=== PATIENT | male | born 1975 | race Caucasian/White ===

== ENCOUNTER 2017-08-14 09:00 | Outpatient (CLI) | payer BC | END 2017-08-14 09:24 | disposition home or self-care (01) | LOC: PTMAIN 09:00 | PROVIDERS: ATTEND Otolaryngology | DX: K21.9 Gastro-esophageal reflux disease without esophagitis (principal); J37.0 Chronic laryngitis | CPT/HCPCS: 31579 ==

== ENCOUNTER → 2017-08-14 | Outpatient (CLI) | payer BC ==
--- NOTE | 2017-08-14 09:15 | CT ---
EXAMINATION TYPE: CT sinus wo con DATE OF EXAM: 08/14/2017 COMPARISON: NONE HISTORY: Sinusitis, throat pain CT DLP: [address] of the paranasal sinuses was performed in the axial and coronal planes. Bone and soft tissue settings are submitted. The paranasal sinuses demonstrate normal aeration and development. The paranasal sinuses are free of mucosal thickening or air fluid level. The osteal meatal units are patent bilaterally. Mild nasal septal deviation from right to left. No bony destructive changes are seen within the field of view. IMPRESSION: Mild nasal septal deviation from right to left.
== END | disposition home or self-care (01) ==
LOC: RADCTMAIN 08:47
PROVIDERS: ATTEND Otolaryngology
DX: J34.2 Deviated nasal septum (principal); J32.9 Chronic sinusitis, unspecified
CPT/HCPCS: 70486

== ENCOUNTER 2022-08-01 13:45 | Inpatient (IN) | payer BC ==
--- NOTE | 2022-08-01 14:48 | ED ---
General Adult HPI - General Source: patient, RN notes reviewed Mode of arrival: ambulatory <Augusta Lopez - Last Filed: 08/01/22 14:46> - General Source: RN notes reviewed, old records reviewed - History of Present Illness -: week(s) (3) Location: abdomen Radiation: non-radiation Severity scale (1-10): 4 Quality: stabbing Consistency: constant Improves with: none Worsens with: none Associated Symptoms: loss of appetite, nausea/vomiting, weakness Treatments Prior to Arrival: none <Shabbir Rodriguez - Last Filed: 08/01/22 17:09> - General Chief complaint: Abdominal Pain Stated complaint: appendix Time Seen by Provider: 08/01/22 14:46 - History of Present Illness Initial comments: 47-year-old male presents to the emergency department with a chief complaint of abnormal CT results. Patient reports that he had an outpatient CT performed at [address] [place] [address] which revealed appendicitis. (Augusta Lopez) This is a 47-year-old male to the emergency department for evaluation presents today with outpatient computed tomography scan results. Patient has had abd ominal pain for 3 weeks episodic one episode of severe abdominal pain which brought him to his knees up over his car significantly nauseous sweating and screaming in pain. That episode did ok but he still had persistent pain since it's all right lower quadrant with decreased appetite Patient was told by his primary care to come the emergency room for evaluation regarding appendicitis (Shabbir Rodriguez) - Related Data Allergies Allergy/AdvReac Type Severity Reaction Status Date / Time No Known Allergies Allergy Verified 08/01/22 13:57 Review of Systems ROS Other: All systems not noted in ROS Statement are negative. <Augusta Lopez - Last Filed: 08/01/22 14:46> ROS Other: All systems not noted in ROS Statement are negative. <Shabbir Rodriguez - Last Filed: 08/01/22 17:09> ROS Statement: Those systems with pertinent positive or pertinent negative responses have been documented in the HPI. Past Medical History Past Medical History: No Reported History History of Any Multi-Drug Resistant Organisms: None Reported Past Surgical History: Cholecystectomy Past Psychological History: No Psychological Hx Reported Smoking Status: Never smoker Past Alcohol Use History: Rare Past Drug Use History: None Reported <Augusta Lopez - Last Filed: 08/01/22 14:46> General Exam <KristinacoleAugusta - Last Filed: 08/01/22 14:46> General appearance: alert, in no apparent distress Head exam: Present: atraumatic, normocephalic, normal inspection Eye exam: Present: normal appearance, PERRL, EOMI. Absent: scleral icterus, conjunctival injection, periorbital swelling ENT exam: Present: normal exam, mucous membranes moist Neck exam: Present: normal inspection. Absent: tenderness, meningismus, lymphadenopathy Respiratory exam: Present: normal lung sounds bilaterally. Absent: respiratory distress, wheezes, rales, rhonchi, stridor Cardiovascular Exam: Present: regular rate, normal rhythm, normal heart sounds. Absent: systolic murmur, diastolic murmur, rubs, gallop, clicks GI/Abdominal exam: Present: soft, tenderness, guarding (Right lower quadrant), normal bowel sounds. Absent: distended, rebound, rigid Extremities exam: Present: normal inspection, full ROM, normal capillary refill. Absent: tenderness, pedal edema, joint swelling, calf tenderness Back exam: Present: normal inspection Neurological exam: Present: alert, oriented X3, CN II-XII intact Psychiatric exam: Present: normal affect, normal mood Skin exam: Present: warm, dry, intact, normal color. Absent: rash <Shabbir Rodriguez - Last Filed: 08/01/22 17:09> - General Exam Comments Initial Comments: Visual Physical Exam Vital signs reviewed General: Well-appearing, nontoxic, no acute distress. Head: Normocephalic, atraumatic Eyes: PERRLA, EOMI ENT: Airway patent Chest: Nonlabored breathing Skin: No visual rash, normal skin tone Neuro: Alert and oriented 3 Musculoskeletal: No gross abnormalities (Augusta Lopez) Course <Shabbir Rodriguez - Last Filed: 08/01/22 17:09> Vital Signs 08/01/22 13:52 Temperature 97.8 F Pulse Rate 84 Respiratory 18 Rate Blood Pressure 115/77 O2 Sat by Pulse 97 Oximetry - Reevaluation(s) Reevaluation #1: 08/01/22 17:06 Medical records reviewed (Shabbir Rodriguez) Reevaluation #2: 08/01/22 17:07 Patient has adequate pain control (Shabbir Rodriguez) Reevaluation #3: 08/01/22 17:07 Patient informed of results and questions answered (Shabbir Rodriguez) Reevaluation #4: 08/01/22 17:07 Was pt. sent in by a medical professional or institution? @ -yes patients PCP re appendiciitis Did you speak to anyone other than the patient for history? @ -no Did you review nursing and triage notes? @ -agree Were old charts reviewed? @ -yes attempted to get CT results and report only was able to reeceive verbal read of appendicitis Differential Diagnosis? @ -prior,abdominal pain EKG interpreted by me (3pts min.)? @ -yes X-rays interpreted by me (1pt min.)? @ -no CT interpreted by me (1pt min.)? @ -no U/S interpreted by me (1pt. min.)? @ -no What testing was considered but not performed? (CT, X-rays, U/S, labs)? Why? @ -no What meds were considered but not given? Why? @ -no Did you discuss the management of the patient with other professionals? @ -no Did you reconcile home meds? @ -yes Was smoking cessation discussed for >3mins.? @ -no Was critical care preformed (if so, how long)? @ -no Were there social determinants of health that impacted care today? How? (Homelessness, low income, unemployed, alcoholism, drug addiction, transportation, low edu. Level, literacy, decrease access to med. care, long term, re hab)? @ -no Was there de-escalation of care discussed even if they declined? (Discuss DNR or withdrawal of care, Hospice)? @ -no What co-morbidities impacted this encounter? (DM, HTN, Smoking, COPD, CAD, Cancer, CVA, Hep., AIDS, mental health diagnosis, sleep apnea, morbid obesity)? @ -none Was patient admitted / discharged? @ -admit Undiagnosed new problem with uncertain prognosis? @ -no Drug Therapy requiring intensive monitoring for toxicity (Heparin, Nitro, Insulin, Cardizem)? @ -no Were any procedures done? @ -no Diagnosis/symptom? @ -acute appendicitis Acute, or Chronic, or Acute on Chronic? @ -acute Uncomplicated (without systemic symptoms) or Complicated (systemic symptoms)? @ -uncomplicated Side effects of treatment? @ -no Exacerbation, Progression, or Severe Exacerbation] @ - Poses a threat to life or bodily function? @ -yes 08/01/22 17:07 (Shabbir Rodriguez) Reevaluation #5: 08/01/22 17:07 Differential Abdominal Pain Women: Appendicitis, Cholecystitis, diverticulosis, ischemic bowel, pancreatitis, h epatitis, UTI, gastroenteritis, AAA, incarcerated hernia, bowel obstruction, constipation, inflammatory bowel, hepatitis, peptic ulcer disease, splenic infarction, perforated viscus, vulvitis, ovarian torsion, PID, kidney stone, placenta abruption, this is not meant to be an all-inclusive list (Shabbir Rodriguez) - Consultations Consultation #1: Spoke with Dr. Jackson will admit this patient for surgical evaluation and consult (Shabbir Rodriguez) Medical Decision Making - Lab Data Result diagrams: 08/01/22 15:53 08/01/22 15:53 <Shabbir Rodriguez - Last Filed: 08/01/22 17:09> - Medical Decision Making 47 male to the emergency department for evaluation acute appendicitis patient will be admitted on IV antibiotics and pain management for surgical consult evaluation (Shabbir Rodriguez) - Lab Data Lab Results 08/01/22 08/01/22 08/01/22 Range/Units 15:53 15:53 15:53 WBC 7.3 (3.8-10.6) k/uL RBC 4.52 (4.30-5.90) m/uL Hgb 13.6 (13.0-17.5) gm/dL Hct 40.0 (39.0-53.0) % MCV 88.4 (80.0-100.0) fL MCH 30.0 (25.0-35.0) pg MCHC 34.0 (31.0-37.0) g/dL RDW 12.9 (11.5-15.5) % Plt Count 340 (150-450) k/uL MPV 7.8 Neutrophils % 72 % Lymphocytes % 19 % Monocytes % 4 % Eosinophils % 2 % Basophils % 0 % Neutrophils # 5.3 (1.3-7.7) k/uL Lymphocytes # 1.4 (1.0-4.8) k/uL Monocytes # 0.3 (0-1.0) k/uL Eosinophils # 0.1 (0-0.7) k/uL Basophils # 0.0 (0-0.2) k/uL PT 10.3 (9.0-12.0) sec INR 1.0 (<1.2) APTT 24.7 (22.0-30.0) sec Sodium 139 (137-145) mmol/L Potassium 4.2 (3.5-5.1) mmol/L Chloride 103 (98-107) mmol/L Carbon Dioxide 26 (22-30) mmol/L Anion Gap 10 mmol/L BUN 14 (9-20) mg/dL Creatinine 0.65 L (0.66-1.25) mg/dL Est GFR (CKD-EPI)AfAm >90 (>60 ml/min/1.73 sqM) Est GFR (CKD-EPI)NonAf >90 (>60 ml/min/1.73 sqM) Glucose 101 H (74-99) mg/dL Calcium 9.1 (8.4-10.2) mg/dL Phosphorus (2.5-4.5) mg/dL Magnesium (1.6-2.3) mg/dL Total Bilirubin 0.5 (0.2-1.3) mg/dL AST 17 (17-59) U/L ALT 15 (4-49) U/L Alkaline Phosphatase 57 (38-126) U/L Total Protein 6.4 (6.3-8.2) g/dL Albumin 3.9 (3.5-5.0) g/dL Lipase (23-300) U/L 08/01/22 Range/Units 15:53 WBC (3.8-10.6) k/uL RBC (4.30-5.90) m/uL Hgb (13.0-17.5) gm/dL Hct (39.0-53.0) % MCV (80.0-100.0) fL MCH (25.0-35.0) pg MCHC (31.0-37.0) g/dL RDW (11.5-15.5) % Plt Count (150-450) k/uL MPV Neutrophils % % Lymphocytes % % Monocytes % % Eosinophils % % Basophils % % Neutrophils # (1.3-7.7) k/uL Lymphocytes # (1.0-4.8) k/uL Monocytes # (0-1.0) k/uL Eosinophils # (0-0.7) k/uL Basophils # (0-0.2) k/uL PT (9.0-12.0) sec INR (<1.2) APTT (22.0-30.0) sec Sodium (137-145) mmol/L Potassium (3.5-5.1) mmol/L Chloride (98-107) mmol/L Carbon Dioxide (22-30) mmol/L Anion Gap mmol/L BUN (9-20) mg/dL Creatinine (0.66-1.25) mg/dL Est GFR (CKD-EPI)AfAm (>60 ml/min/1.73 sqM) Est GFR (CKD-EPI)NonAf (>60 ml/min/1.73 sqM) Glucose (74-99) mg/dL Calcium (8.4-10.2) mg/dL Phosphorus 3.6 (2.5-4.5) mg/dL Magnesium 2.1 (1.6-2.3) mg/dL Total Bilirubin (0.2-1.3) mg/dL AST (17-59) U/L ALT (4-49) U/L Alkaline Phosphatase (38-126) U/L Total Protein (6.3-8.2) g/dL Albumin (3.5-5.0) g/dL Lipase 256 (23-300) U/L Disposition <Augusta Lopez - Last Filed: 08/01/22 14:46> Is patient prescribed a controlled substance at d/c from ED?: No Time of Disposition: 17:10 <Shabbir Rodriguez - Last Filed: 08/01/22 17:09> Clinical Impression: Abdominal pain, Acute appendicitis Disposition: ADMITTED IP TO THIS HOSP Condition: Serious Referrals: Carlton Rodrigues MD [Primary Care Provider] - 1-2 days
[2022-08-01] MEDS ORDERED: SODIUM CHLORIDE 0.9% 1,000 ML IV STA (15:57)
[2022-08-01 16:10] LABS: ALT 15 U/L (4-49); AST 17 U/L (17-59); African American GFR (CKD) >90 (>60 ml/min/1.73 sqM); Albumin 3.9 g/dL (3.5-5.0); Alkaline Phosphatase 57 U/L (38-126); Anion Gap 10 mmol/L; Blood Urea Nitrogen 14 mg/dL (9-20); Calcium 9.1 mg/dL (8.4-10.2); Carbon Dioxide 26 mmol/L (22-30); Chloride 103 mmol/L (98-107); Glucose 101 mg/dL (74-99); Non-African American GFR(CKD) >90 (>60 ml/min/1.73 sqM); Potassium 4.2 mmol/L (3.5-5.1); Sodium 139 mmol/L (137-145); Total Bilirubin 0.5 mg/dL (0.2-1.3); Total Protein 6.4 g/dL (6.3-8.2)
[2022-08-01 16:12] LABS: Partial Thromboplastin Time 24.7 sec (22.0-30.0); Prothrombin Time 10.3 sec (9.0-12.0)
[2022-08-01 16:13] LABS: Basophils % (A) 0 %; Eosinophils # (A) 0.1 k/uL (0-0.7); Eosinophils % (A) 2 %; HGB 13.6 gm/dL (13.0-17.5); Lymphocytes # (A) 1.4 k/uL (1.0-4.8); Lymphocytes % (A) 19 %; MCV 88.4 fL (80.0-100.0); Mean Platelet Volume 7.8; Monocytes # (A) 0.3 k/uL (0-1.0); Monocytes % (A) 4 %; Neutrophils # (A) 5.3 k/uL (1.3-7.7); Neutrophils % (A) 72 %; Platelet Count 340 k/uL (150-450); RBC 4.52 m/uL (4.30-5.90); RDW 12.9 % (11.5-15.5); WBC 7.3 k/uL (3.8-10.6)
[2022-08-01] MEDS ORDERED: NALOXONE 0.4 MG/ML 1 ML VIAL IV PRN (16:48)
[2022-08-01] MEDS ORDERED: AMPICILLIN-SULBACTAM 3 GM in SODIUM CHLORIDE 0.9% 100 ML IVPB STA (16:48)
[2022-08-01 16:57] LABS: Magnesium 2.1 mg/dL (1.6-2.3); Phosphorus 3.6 mg/dL (2.5-4.5)
[2022-08-01] MEDS ORDERED: KETOROLAC 15 MG/ML 1 ML VIAL IVP STA (17:05)
[2022-08-01] MEDS: PANTOPRAZOLE 40 MG/10 ML VIAL IV SCH (17:13)
[2022-08-01] MEDS: MORPHINE SULFATE 4 MG/ML SYRINGE IV PRN ×2 (17:13→22:24)
[2022-08-01] MEDS: SODIUM CHLORIDE 0.9% 1,000 ML IV SCH ×2 (18:20→22:01)
[2022-08-02] MEDS: AMPICILLIN-SULBACTAM 3 GM in SODIUM CHLORIDE 0.9% 100 ML IVPB SCH ×4 (00:03→22:48)
[2022-08-02] MEDS: MORPHINE SULFATE 4 MG/ML SYRINGE IV PRN ×2 (04:03→09:01)
[2022-08-02] MEDS: PANTOPRAZOLE 40 MG/10 ML VIAL IV SCH (08:56)
--- NOTE | 2022-08-02 10:05 | P.GSHP ---
History of Present Illness H&P Date: 08/02/22 Chief Complaint: Acute appendicitis 47-year-old male has had intermittent episodes of right lower quadrant pain which radiates to the back and the lower pelvic region for the last month or so. He went for outpatient CAT scan at his doctor's office yesterday. A 1.5 cm dilated retrocecal appendix with significant inflammatory changes was noted. There was no abscess or free air seen. The patient is afebrile. Normal white blood cell count at this time. Says his pain is mild to moderate today but can be quite severe some days. Denies rectal bleeding or melena. - Review of Systems Comment: The patient denies any acute changes in vision or hearing, no dysphagia or odynophagia, no chest pain or shortness of breath, no dysuria or hematuria, no headache, no runny nose, no rectal bleeding or melena, no unexplained weight loss Past Medical History Past Medical History: GERD/Reflux, Hyperlipidemia History of Any Multi-Drug Resistant Organisms: None Reported Past Surgical History: Adenoidectomy, Cholecystectomy, Tonsillectomy Past Anesthesia/Blood Transfusion Reactions: No Reported Reaction Past Psychological History: Depression Smoking Status: Never smoker Past Alcohol Use History: Rare Past Drug Use History: None Reported - Past Family History Mother Additional Family Medical History / Comment(s): kidney stones Father Family Medical History: Cancer, Diabetes Mellitus, Hypertension, Thyroid Disorder Additional Family Medical History / Comment(s): leukemia, kidney stones Medications and Allergies Home Medications Medication Instructions Recorded Confirmed Type Cyanocobalamin (Vitamin B-12) 1,000 mcg PO DAILY 08/01/22 08/01/22 History [Vitamin B-12] Eszopiclone [Lunesta] 3 mg PO HS 08/01/22 08/01/22 History Pantoprazole Sodium [Protonix] 40 mg PO DAILY 08/01/22 08/01/22 History buPROPion XL [Wellbutrin XL] 150 mg PO DAILY 08/01/22 08/01/22 History Allergies Allergy/AdvReac Type Severity Reaction Status Date / Time No Known Allergies Allergy Verified 08/01/22 17:46 Surgical - Exam Vital Signs Temp Pulse Resp BP Pulse Ox 97.8 F 84 18 115/77 97 08/01/22 13:52 08/01/22 13:52 08/01/22 13:52 08/01/22 13:52 08/01/22 13:52 Physical exam: General: Well-developed, well-nourished HEENT: Normocephalic, sclerae nonicteric Abdomen: Nondistended, tenderness with induration right lower quadrant, no rebound or guarding Extremities: No edema Neuro: Alert and oriented Results - Labs 08/01/22 15:53 08/01/22 15:53 Abnormal Lab Results - Last 24 Hours (Table) 08/01/22 Range/Units 15:53 Creatinine 0.65 L (0.66-1.25) mg/dL Glucose 101 H (74-99) mg/dL Diabetes panel 08/01/22 Range/Units 15:53 Sodium 139 (137-145) mmol/L Potassium 4.2 (3.5-5.1) mmol/L Chloride 103 (98-107) mmol/L Carbon Dioxide 26 (22-30) mmol/L BUN 14 (9-20) mg/dL Creatinine 0.65 L (0.66-1.25) mg/dL Glucose 101 H (74-99) mg/dL Calcium 9.1 (8.4-10.2) mg/dL AST 17 (17-59) U/L ALT 15 (4-49) U/L Alkaline Phosphatase 57 (38-126) U/L Total Protein 6.4 (6.3-8.2) g/dL Albumin 3.9 (3.5-5.0) g/dL Calcium panel 08/01/22 08/01/22 Range/Units 15:53 15:53 Calcium 9.1 (8.4-10.2) mg/dL Phosphorus 3.6 (2.5-4.5) mg/dL Albumin 3.9 (3.5-5.0) g/dL Pituitary panel 08/01/22 Range/Units 15:53 Sodium 139 (137-145) mmol/L Potassium 4.2 (3.5-5.1) mmol/L Chloride 103 (98-107) mmol/L Carbon Dioxide 26 (22-30) mmol/L BUN 14 (9-20) mg/dL Creatinine 0.65 L (0.66-1.25) mg/dL Glucose 101 H (74-99) mg/dL Calcium 9.1 (8.4-10.2) mg/dL Adrenal panel 08/01/22 Range/Units 15:53 Sodium 139 (137-145) mmol/L Potassium 4.2 (3.5-5.1) mmol/L Chloride 103 (98-107) mmol/L Carbon Dioxide 26 (22-30) mmol/L BUN 14 (9-20) mg/dL Creatinine 0.65 L (0.66-1.25) mg/dL Glucose 101 H (74-99) mg/dL Calcium 9.1 (8.4-10.2) mg/dL Total Bilirubin 0.5 (0.2-1.3) mg/dL AST 17 (17-59) U/L ALT 15 (4-49) U/L Alkaline Phosphatase 57 (38-126) U/L Total Protein 6.4 (6.3-8.2) g/dL Albumin 3.9 (3.5-5.0) g/dL Assessment and Plan (1) Acute appendicitis Narrative/Plan: 47-year-old male with acute appendicitis. Symptoms going on for the last month or so. CAT scan report has been reviewed. Attempts at obtaining the actual films from yesterday morning have been unsuccessful. The patient and I discussed the options of proceeding with appendectomy today versus repeating his CAT scan so that we could review this further. The amount of induration in the right lower quadrant on exam is mild. I think it is reasonable to avoid any further radiation exposure and proceed with surgery at this time. We did discuss the fact that this was going to be more difficult than our typical acute appendicitis given the duration of symptoms and the inflammatory changes described by CAT scan. We discussed that there was a increased risk of conversion to an open procedure and possible need for bowel resection. The unlikely possibility of neoplastic changes at the cecum were also reviewed. After further discussion with the patient answering questions to the best of my ability we have decided to proceed with surgery today. We'll proceed with laparoscopic appendectomy, possible open appendectomy. Risks of bleeding, infection, scarring, bladder bowel and ureteral injury, conversion to an open procedure, need for bowel resection, postop abscess wound infection or hernia reviewed. He understands and wishes to proceed. Current Visit: Yes Status: Acute Code(s): K35.80 - UNSPECIFIED ACUTE APPENDICITIS SNOMED Code(s): 88445631
[2022-08-02 11:13] LABS: Basophils # (A) 0.05 X 10*3/uL (0.00-0.10); Basophils % (A) 0.9 %; Eosinophils # (A) 0.09 X 10*3/uL (0.04-0.35); Eosinophils % (A) 1.7 %; HCT 38.3 % (39.6-50.0); HGB 12.5 g/dL (13.0-17.0); Immature Grans, Automated 0.4 %; Lymphocytes # (A) 0.65 X 10*3/uL (0.90-5.00); Lymphocytes % (A) 12.1 %; MCHC 32.6 g/dL (32.0-37.0); MCV 91.8 fL (80.0-97.0); Mean Platelet Volume 9.3 fL (9.5-12.2); Monocytes % (A) 7.4 %; NRBC Per 100 WBC 0 /100 WBCS (0.0-0.0); Neutrophils # (A) 4.17 X 10*3/uL (1.80-7.70); Neutrophils % (A) 77.5 %; Platelet Count 247 X 10*3/uL (140-440); RBC 4.17 X 10*6/uL (4.40-5.60); RDW 12.5 % (11.5-14.5); WBC 5.38 X 10*3/uL (4.50-10.00)
[2022-08-02] MEDS: SODIUM CHLORIDE 0.9% 1,000 ML IV SCH ×2 (12:02→20:30)
[2022-08-02 12:56] VITALS: BMI 25.7
[2022-08-02] MEDS ORDERED: IV FLUID CONTINUATION 1,000 ML IV ONE (14:52)
[2022-08-02] MEDS: ONDANSETRON 4 MG/2 ML VIAL IVP PRN (14:59)
[2022-08-02] MEDS ORDERED: fentaNYL (PF) 50 MCG/ML 2 ML AMP IVP ONE (14:59)
[2022-08-02] MEDS ORDERED: MIDAZOLAM 2 MG/2 ML VIAL IVP ONE ×2 (15:11→15:16)
[2022-08-02] MEDS ORDERED: HEPARIN SODIUM,PORCINE/PF 5,000 UNIT/0.5 ML SYRINGE SQ ONE (15:13)
[2022-08-02] MEDS ORDERED: metroNIDAZOLE-NS PMX 500 MG in SALINE 1 100ML.BAG IVPB STA (15:29)
[2022-08-02] MEDS ORDERED: HYDROmorphone (PF) 1 MG/ML ONE (15:54)
[2022-08-02] MEDS ORDERED: MIDAZOLAM 2 MG/2 ML VIAL ONE (15:54)
[2022-08-02] MEDS ORDERED: GLYCOPYRROLATE 0.2 MG/ML 2 ML VIAL ONE (15:54)
[2022-08-02] MEDS ORDERED: KETOROLAC 15 MG/ML 1 ML VIAL ONE (15:54)
[2022-08-02] MEDS ORDERED: PROPOFOL 10 MG/ML 20 ML VIAL IV ONE (15:54)
[2022-08-02] MEDS ORDERED: fentaNYL (PF) 50 MCG/ML 2 ML AMP ONE (15:54)
[2022-08-02] MEDS ORDERED: NEOSTIGMINE 1 MG/ML 10 ML VIAL ONE (15:54)
[2022-08-02] MEDS ORDERED: ROCURONIUM 10 MG/ML (5 ML VIAL) IV ONE (15:54)
[2022-08-02] MEDS ORDERED: SUCCINYLCHOLINE CHLORIDE 200 MG/10 ML VIAL IV ONE (15:54)
[2022-08-02] MEDS ORDERED: LIDOCAINE 2% INJ 20 MG/ML (2 ML VIAL) ONE (15:54)
[2022-08-02] MEDS ORDERED: BUPIVACAINE (PF) 0.25% 30 ML VIAL SQ ONE (16:18)
[2022-08-02] MEDS ORDERED: HYDROmorphone 0.5 MG/0.5 ML SYRINGE IVP PRN (18:12)
[2022-08-02] MEDS ORDERED: ACETAMINOPHEN IV (For NPO) 1,000 MG in EMPTY BAG 1 BAG IVPB PRN (18:12)
[2022-08-02] MEDS ORDERED: HYDROmorphone 1 MG/ML 1 ML SYRINGE IVP PRN (18:12)
[2022-08-02] MEDS ORDERED: NALOXONE 0.4 MG/ML 1 ML VIAL IV PRN (18:19)
--- NOTE | 2022-08-02 18:19 | P.OP ---
Date of Procedure: 08/02/22 Procedure(s) Performed: PREOPERATIVE DIAGNOSIS: Acute appendicitis POSTOPERATIVE DIAGNOSIS: Subacute appendicitis with abscess formation PROCEDURE: Diagnostic laparoscopy, laparoscopic lysis of adhesions, conversion to laparotomy with ileocecectomy SURGEON: Manuel EBL: 50 mL ANESTHESIA: General COMPLICATIONS: None OPERATIVE PROCEDURE: The patient was brought and placed on the operating table in the supine position. The patient was placed under general anesthesia. The abdomen was prepped and draped in the usual sterile fashion. A small vertical infraumbilical incision was made. The fascia was retracted anteriorly with Mia forceps. The Veress needle was advanced into the peritoneal cavity. The saline drop test was normal. Insufflation took place to 15 mmHg. A 5 mm trocar was then placed. An additional 5 mm suprapubic trocar was placed under direct visualization as well as a 12 mm left lower quadrant trocar under direct visualization. Right lower quadrant revealed significant induration. The sigmoid colon the right pelvic sidewall the cecum and terminal ileum were all matted together. Careful blunt dissection ensued. We refer stable to move the sigmoid colon away from the phlegmon. An abscess cavity was encountered measuring approximately 3-4 center meters. Cultures were taken from the purulent fluid that was evacuated. Next we were able to mobilize the sigmoid colon and the phlegmon away from the right pelvic sidewall. Finally we were able to mobilize the ileum away from the structure. After doing so it became obvious that the appendix itself was involved in a large area of chronic inflammation and the base of the cecum was involved with this heavily. I did not feel that we would be able to safely remove the appendix from the cecum given the degree of inflammatory change present. At that point the pneumoperitoneum was evacuated. An incision was made between our 2 infraumbilical incision sites. The fascia was divided and entrance in the perineal cavity occurred. The cecum was further mobilized. The large area of induration was confirmed. The terminal ileum was divided approximately 7 cm proximal to the ileocecal valve using a linear 75 stapler. The proximal ascending colon was divided in a similar fashion. The antimesenteric portion of the staple lines was removed. The linear stapler was fired. The remaining defect was closed using a TX 60 device. A 3-0 GI silk crotch stitch was placed. The 3-0 GI silk staple line was imbricated using interrupted 3-0 GI silk sutures. Careful irrigation took place. No bleeding or further purulence was seen. The 12 mm if lower quadrant trocar site was closed using a 0 Vicryl suture. A drain was placed coming out through that same incision site into the pelvis and right lower quadrant. This was sutured in place using a 2-0 silk stitch. The fascia was then reapproximated using a running double-stranded #1 PDS suture. The skin was loosely reapproximated with balaji. Sterile dressings were applied. DISPOSITION: Stable to recovery room
[2022-08-02] MEDS ORDERED: HYDROmorphone 0.5 MG/0.5 ML SYRINGE IVP ONE (18:43)
[2022-08-02] MEDS ORDERED: fentaNYL (PF) 50 MCG/ML 2 ML AMP INTRATHECA ONE (18:56)
[2022-08-02] MEDS: ROPIVACAINE 250 MG, HYDROMORPHONE (PF) 5 MG in SODIUM CHLORIDE 0.9% 200 ML EPIDURAL PRN ×2 (19:37→21:02)
[2022-08-02] MEDS: metroNIDAZOLE-NS PMX 500 MG in SALINE 1 100ML.BAG IVPB SCH (23:42)
[2022-08-02] MEDS: HEPARIN SODIUM,PORCINE/PF 5,000 UNIT/0.5 ML SYRINGE SQ SCH (23:43)
[2022-08-03] MEDS: SODIUM CHLORIDE 0.9% 1,000 ML IV SCH ×2 (00:01→08:04)
[2022-08-03] MEDS ORDERED: oxyBUTYnin chloride 5 MG TAB PO STA (00:45)
[2022-08-03] MEDS: AMPICILLIN-SULBACTAM 3 GM in SODIUM CHLORIDE 0.9% 100 ML IVPB SCH ×5 (01:30→23:22)
[2022-08-03] MEDS: HEPARIN SODIUM,PORCINE/PF 5,000 UNIT/0.5 ML SYRINGE SQ SCH ×4 (01:30→23:23)
[2022-08-03] MEDS: metroNIDAZOLE-NS PMX 500 MG in SALINE 1 100ML.BAG IVPB SCH ×4 (01:30→23:23)
[2022-08-03] MEDS ORDERED: diphenhydrAMINE 25 MG CAP PO STA (06:04)
[2022-08-03] MEDS: PANTOPRAZOLE 40 MG/10 ML VIAL IV SCH (08:03)
--- NOTE | 2022-08-03 09:15 | P.PN ---
Progress Note - Text Progress Note Date: 08/03/22 Patient's postoperative day 1 from her ileocolectomy for severe acute appendicitis. He has complaints of incisional pain. On exam his vital signs are stable. Abdomen soft. Incisions clean dry intact. His wound dressing changes performed today. He'll start clear liquid diet.
[2022-08-03 09:34] LABS: Anion Gap 11.5 mmol/L (10.00-18.00); BUN/Creat Ratio 10.25 Ratio (12.00-20.00); Blood Urea Nitrogen 8.2 mg/dL (9.0-27.0); Calcium 8.2 mg/dL (8.7-10.3); Carbon Dioxide 25.5 mmol/L (20.0-27.5); Non-African American GFR(CKD) 107.9 (60.0-200.0); Potassium 3.8 mmol/L (3.5-5.5)
[2022-08-03] MEDS: buPROPion XL 150 MG TAB.ER.24H PO SCH (10:43)
[2022-08-03 11:23] LABS: Basophils # (A) 0.03 X 10*3/uL (0.00-0.10); Basophils % (A) 0.3 %; Eosinophils # (A) 0.01 X 10*3/uL (0.04-0.35); Eosinophils % (A) 0.1 %; HCT 32.1 % (39.6-50.0); HGB 10.6 g/dL (13.0-17.0); Immature Grans, Automated 1.1 %; Immature Platelet Fraction 2.9 % (1.1-6.1); Lymphocytes # (A) 0.92 X 10*3/uL (0.90-5.00); Lymphocytes % (A) 9.5 %; MCH 30.2 pg (27.0-32.0); MCV 91.5 fL (80.0-97.0); Mean Platelet Volume 9.9 fL (9.5-12.2); Monocytes # (A) 0.54 X 10*3/uL (0.20-1.00); Monocytes % (A) 5.6 %; NRBC Per 100 WBC 0 /100 WBCS (0.0-0.0); Neutrophils % (A) 83.4 %; Platelet Count 298 X 10*3/uL (140-440); RBC 3.51 X 10*6/uL (4.40-5.60); RDW 12.3 % (11.5-14.5); WBC 9.71 X 10*3/uL (4.50-10.00)
[2022-08-03] MEDS ORDERED: diphenhydrAMINE 50 MG/ML 1 ML VIAL IVP PRN (14:26)
[2022-08-03] MEDS: ONDANSETRON 4 MG/2 ML VIAL IVP PRN (15:06)
--- NOTE | 2022-08-03 15:10 | P.CONS ---
History of Present Illness - Reason for Consult Consult date: 08/03/22 Medical Management Requesting physician: Eliazar Jackson - History of Present Illness History of Presenting Illness: Patient is a very pleasant 47-year-old male with a past medical history of hyperlipidemia, GERD, and depression. He presented to the emergency department for chief complaint of abdominal pain. Patient reports that he was initially evaluated at another [facility] facility on [address] and underwent a computed tomography scan. Patient reports that he received a call from his primary care provider to go to the emergency department for evaluation as CT was concerning for acute appendicitis. Patient was admitted under Gen. surgery team and we are consulted for medical management throughout remainder of hospitalization. Patient is currently postoperative day one. He was seen and fully evaluated at bedside. Patient reports controlled postoperative pain at this time. He does report experiencing uncontrolled itching overnight secondary to sheets/blankets, no rash noted. Order placed for Benadryl 20 mg IVP every 6 hours as needed. Patient currently maintaining clear liquid diet and denies any episodes of postoperative nausea or vomiting. Patient denies having any other complaints including headache, lightheadedness, dizziness, chest pain, palpitations, or shortness of breath. Review of systems: Pertinent positives and negatives as discussed in HPI, a complete review of systems was performed and all other systems are negative. Physical exam: Vital signs reviewed and stable. General: Nontoxic, no distress and appears stated age. Derm: Skin warm and dry, normal coloration for ethnicity. Postoperative dressings clean, dry, and intact. Head: Atraumatic, normocephalic and symmetric. Eyes: EOMs intact, no lid lag, and anicteric sclera Mouth: no lip lesions, mucus membranes moist Cardiovascular: regular rate and rhythm with normal S1S2, no murmur, positive posterior tibial pulses bilaterally, and cap refill < 2 seconds. Lungs: Respirations even, regular, and unlabored on room air. Lungs CTA bilaterally, no rhonchi, no rales, no wheezing, and no accessory muscle usage. Abdominal: soft, nontender to palpation, no guarding, no appreciable organomegaly. Aggarwal catheter in place. Ext: ROM intact. No gross muscle atrophy, no edema, no contractures Neuro: Speech clear, face symmetrical and CN II-XII grossly intact with no noted focal neuro deficits Psych: Alert and oriented to person, place, time, and situation. Appropriate and pleasant affect. Assessment and Plan of Care: Status post laparoscopic appendectomy -Patient laparoscopic appendectomy with Dr. Jackson on 08/02/22 -Recommending continuing 3 g every 6 hours and Flagyl 500 mg every 8 hours -Patient is now tolerating clear liquid diet, will discontinue IV fluids. -Continue with symptomatic care and pain management with Ofirmev 1000 mg every 6 hours scheduled and when necessary Dilaudid 0.5 mg for moderate pain and 1 mg IVP for severe pain. Postoperative blood loss anemia, expected finding. -We will postoperative blood loss anemia with postsurgical hemoglobin of 10.6 from presurgical hemoglobin of 12.5. Patient having no signs of active bleeding at this time. Hemoglobin levels stable with no need for transfusion or additional interventions at this time. We will repeat morning CBC and follow up on these results and place additional orders as needed. Anxiety and depression -Reviewed Home medications and reordered Wellbutrin 150 mg every 24 hours. GERD -GI prophylaxis with Protonix 40 mg IVP Thank you for allowing us to participate in the care of this pleasant patient. Do not hesitate to contact us with questions. Someone can be reached from the [facility] hospitalist group all hours of the day at [phone] or via [employer]. Patient was seen independently by Nurse Practitioner. This document was prepared using [employer] dictation software. Please allow for errors in tack maker while rare they do occur. Ramone Apple NP rendered care for this patient independently, reviewed the findings and plan as documented in the note above. I did not physically speak with or examine the patient on this date. Past Medical History Past Medical History: GERD/Reflux, Hyperlipidemia History of Any Multi-Drug Resistant Organisms: None Reported Past Surgical History: Adenoidectomy, Cholecystectomy, Tonsillectomy Past Anesthesia/Blood Transfusion Reactions: No Reported Reaction Past Psychological History: Depression Smoking Status: Never smoker Past Alcohol Use History: Rare Past Drug Use History: None Reported - Past Family History Mother Additional Family Medical History / Comment(s): kidney stones Father Family Medical History: Cancer, Diabetes Mellitus, Hypertension, Thyroid Disorder Additional Family Medical History / Comment(s): leukemia, kidney stones Medications and Allergies Home Medications Medication Instructions Recorded Confirmed Type Cyanocobalamin (Vitamin B-12) 1,000 mcg PO DAILY 08/01/22 08/01/22 History [Vitamin B-12] Eszopiclone [Lunesta] 3 mg PO HS 08/01/22 08/01/22 History Pantoprazole Sodium [Protonix] 40 mg PO DAILY 08/01/22 08/01/22 History buPROPion XL [Wellbutrin XL] 150 mg PO DAILY 08/01/22 08/01/22 History Allergies Allergy/AdvReac Type Severity Reaction Status Date / Time No Known Allergies Allergy Verified 08/01/22 17:46 Physical Exam Vitals: Vital Signs Temp Pulse Resp BP Pulse Ox 08/03/22 06:53 99.1 F 79 18 98/59 94 L 08/03/22 01:05 98.4 F 85 18 94/61 94 L 08/02/22 23:00 88 109/72 08/02/22 22:45 95 110/73 98 08/02/22 22:30 94 122/70 98 08/02/22 22:15 83 129/84 99 08/02/22 22:00 95 128/88 99 08/02/22 21:45 71 133/87 100 08/02/22 21:30 82 117/81 100 08/02/22 21:15 75 132/80 100 08/02/22 21:00 98.2 F 77 18 128/81 100 08/02/22 19:47 97 20 119/66 97 08/02/22 19:32 82 20 114/63 96 08/02/22 19:17 86 18 116/64 96 08/02/22 19:03 83 16 120/67 93 L 08/02/22 18:47 97 16 131/69 94 L 08/02/22 18:34 81 16 123/71 94 L 08/02/22 18:19 97.5 F L 92 16 119/60 90 L 08/02/22 14:52 96 16 134/82 95 08/02/22 14:31 99.3 F 95 20 121/77 97 08/02/22 14:00 18 Intake and Output 08/02/22 08/03/22 08/03/22 22:59 06:59 14:59 Intake Total 1950 1297.333 Output Total 250 850 Balance 1700 447.333 Intake: IV 1950 Intake, IV Titration 1297.333 Amount Ampicillin-Sulbactam 3 gm 200 In Sodium Chloride 0.9% 100 ml @ 200 mls/hr IVPB Q6HR [facility] Rx#:[id number] Ropivacaine 250 mg 87.333 Hydromorphone (Pf) 5 mg In Sodium Chloride 0.9% 200 ml @ Per Protocol EPIDURAL .Q0M PRN Rx#: [id number] Sodium Chloride 0.9% 1, 910 000 ml @ 130 mls/hr IV . Q7H42M [facility] Rx#:[id number] metroNIDAZOLE-NS PMX 500 100 mg In Saline 1 100ml.bag @ 100 mls/hr IVPB ONCE STA Rx#:[id number] Output: Drainage 25 Abdomen 25 Urine 200 825 Estimated Blood Loss 50 Other: Voiding Method Indwelling Catheter Results CBC & Chem 7: 08/05/22 14:12 08/05/22 04:06 Labs: Abnormal Lab Results - Last 24 Hours (Table) 08/02/22 Range/Units 07:06 RBC 4.17 L (4.40-5.60) X 10*6/uL Hgb 12.5 L (13.0-17.0) g/dL Hct 38.3 L (39.6-50.0) % MPV 9.3 L (9.5-12.2) fL Lymphocytes # 0.65 L (0.90-5.00) X 10*3/uL
[2022-08-03] MEDS: ROPIVACAINE 250 MG, HYDROMORPHONE (PF) 5 MG in SODIUM CHLORIDE 0.9% 200 ML EPIDURAL PRN (16:31)
--- NOTE | 2022-08-03 22:18 | P.CONS ---
History of Present Illness - Reason for Consult Consult date: 08/03/22 Ruptured appendicitis with abscess Requesting physician: Eliazar Jackson - Chief Complaint Abdominal pain x few days - History of Present Illness Patient is a 47-year-old male with a past medical history significant for hyperlipidemia reflux presenting to the hospital for evaluation of right lower quadrant abdominal pain apparently has been going on for about 3 weeks patient did have some improvement initially however noticed to having increasing pain mostly in the right lower quadrant area and describing to be sharp almost 7-8 out of 10 and no radiation has nausea but no vomiting, patient did have a outside CT scan of abdominal pelvis with tissues 1.5 cm dilated retrocecal appendix with significant inflammatory changes patient was admitted to hospital and taken to the OR last evening patient was noticed to have subacute appendicitis with abscess formation status post laparoscopic lysis of lesion conversion to laparotomy and ileocecectomy, patient on presentation to hospital was afebrile and no fever has been recorded subsequently did have normal white count kidney function has been normal liver enzymes are normal abdominal cultures obtained patient was started on Unasyn 3 g every 6 hours infectious disease was consulted for further management of antibiotic therapy Review of Systems Positive point and negatives has been mentioned in the HPI, complete review of systems was performed and all other systems are negative Past Medical History Past Medical History: GERD/Reflux, Hyperlipidemia History of Any Multi-Drug Resistant Organisms: None Reported Past Surgical History: Adenoidectomy, Cholecystectomy, Tonsillectomy Past Anesthesia/Blood Transfusion Reactions: No Reported Reaction Past Psychological History: Depression Smoking Status: Never smoker Past Alcohol Use History: Rare Past Drug Use History: None Reported - Past Family History Mother Additional Family Medical History / Comment(s): kidney stones Father Family Medical History: Cancer, Diabetes Mellitus, Hypertension, Thyroid Disorder Additional Family Medical History / Comment(s): leukemia, kidney stones Medications and Allergies Home Medications Medication Instructions Recorded Confirmed Type Cyanocobalamin (Vitamin B-12) 1,000 mcg PO DAILY 08/01/22 08/01/22 History [Vitamin B-12] Eszopiclone [Lunesta] 3 mg PO HS 08/01/22 08/01/22 History Pantoprazole Sodium [Protonix] 40 mg PO DAILY 08/01/22 08/01/22 History buPROPion XL [Wellbutrin XL] 150 mg PO DAILY 05/11/23 05/11/23 History Ciprofloxacin HCl [Cipro] 500 mg PO Q12HR 14 Days #28 tab 08/09/22 Rx Ibuprofen [Motrin] 600 mg PO Q8HR PRN #30 tab 08/09/22 Rx Loperamide [Imodium] 2 mg PO BID PRN #10 capsule 08/09/22 Rx metroNIDAZOLE [Flagyl] 500 mg PO TID 14 Days #42 tab 08/09/22 Rx Allergies Allergy/AdvReac Type Severity Reaction Status Date / Time No Known Allergies Allergy Verified 08/01/22 17:46 Physical Exam Vitals: Vital Signs Temp Pulse Resp BP Pulse Ox 08/03/22 06:53 99.1 F 79 18 98/59 94 L 08/03/22 01:05 98.4 F 85 18 94/61 94 L 08/02/22 23:00 88 109/72 08/02/22 22:45 95 110/73 98 08/02/22 22:30 94 122/70 98 08/02/22 22:15 83 129/84 99 08/02/22 22:00 95 128/88 99 08/02/22 21:45 71 133/87 100 08/02/22 21:30 82 117/81 100 08/02/22 21:15 75 132/80 100 08/02/22 21:00 98.2 F 77 18 128/81 100 08/02/22 19:47 97 20 119/66 97 08/02/22 19:32 82 20 114/63 96 08/02/22 19:17 86 18 116/64 96 08/02/22 19:03 83 16 120/67 93 L 08/02/22 18:47 97 16 131/69 94 L 08/02/22 18:34 81 16 123/71 94 L 08/02/22 18:19 97.5 F L 92 16 119/60 90 L 08/02/22 14:52 96 16 134/82 95 08/02/22 14:31 99.3 F 95 20 121/77 97 08/02/22 14:00 18 Intake and Output 08/02/22 08/03/22 08/03/22 22:59 06:59 14:59 Intake Total 1950 1297.333 Output Total 250 850 Balance 1700 447.333 Intake: IV 1950 Intake, IV Titration 1297.333 Amount Ampicillin-Sulbactam 3 gm 200 In Sodium Chloride 0.9% 100 ml @ 200 mls/hr IVPB Q6HR [facility] Rx#:[id number] Ropivacaine 250 mg 87.333 Hydromorphone (Pf) 5 mg In Sodium Chloride 0.9% 200 ml @ Per Protocol EPIDURAL .Q0M PRN Rx#: [id number] Sodium Chloride 0.9% 1, 910 000 ml @ 130 mls/hr IV . Q7H42M [facility] Rx#:[id number] metroNIDAZOLE-NS PMX 500 100 mg In Saline 1 100ml.bag @ 100 mls/hr IVPB ONCE STA Rx#:[id number] Output: Drainage 25 Abdomen 25 Urine 200 825 Estimated Blood Loss 50 Other: Voiding Method Indwelling Catheter Indwelling Catheter GENERAL DESCRIPTION: Middle-aged male lying in bed, no distress. No tachypnea or accessory muscle of respiration use. HEENT: Shows Pallor , no scleral icterus. Oral mucous membrane is dry. No pharyngeal erythema or thrush NECK: Trachea central, no thyromegaly. LUNGS: Unlabored breathing. Clear to auscultation anteriorly. No wheeze or crac kle. HEART: S1, S2, regular rate and rhythm. No loud murmur ABDOMEN: Soft, mild abdominal tenderness EXTREMITIES: No edema of feet. SKIN: No rash, no masses palpable. NEUROLOGICAL: The patient is awake, alert, oriented x3, mood and affect normal. Results CBC & Chem 7: 08/08/22 06:34 08/09/22 09:21 Labs: Abnormal Lab Results - Last 24 Hours (Table) 08/03/22 08/03/22 Range/Units 06:25 06:25 RBC 3.51 L (4.40-5.60) X 10*6/uL Hgb 10.6 L (13.0-17.0) g/dL Hct 32.1 L (39.6-50.0) % Immature Gran # 0.11 H (0.00-0.04) X 10*3/uL Neutrophils # 8.10 H (1.80-7.70) X 10*3/uL Eosinophils # 0.01 L (0.04-0.35) X 10*3/uL BUN 8.2 L (9.0-27.0) mg/dL BUN/Creatinine Ratio 10.25 L (12.00-20.00) Ratio Calcium 8.2 L (8.7-10.3) mg/dL Assessment and Plan (1) Acute appendicitis Status: Acute Code(s): K35.80 - UNSPECIFIED ACUTE APPENDICITIS SNOMED Code(s): 50709043 (2) Intra-abdominal abscess Status: Acute Code(s): K65.1 - PERITONEAL ABSCESS SNOMED Code(s): 31288139 Plan: 1patient present to hospital abdominal pain noticed to have a appendicitis with abscess formation status post laparotomy and ileocecectomy, we will need to call for the enteric gram-negative both aerobes and anaerobes 2-patient to continue with Unasyn 3 g every 6 hours while waiting for the culture to finalize We will follow on clinical condition and cultures to further adjust medication if needed Thank you for this consultation we will follow the patient along with you Time with Patient: Greater than 30
[2022-08-04] MEDS ORDERED: ALPRAZolam 0.25 MG TAB PO STA (00:22)
[2022-08-04] MEDS: AMPICILLIN-SULBACTAM 3 GM in SODIUM CHLORIDE 0.9% 100 ML IVPB SCH ×3 (05:30→19:51)
[2022-08-04] MEDS: metroNIDAZOLE-NS PMX 500 MG in SALINE 1 100ML.BAG IVPB SCH ×3 (08:05→23:52)
[2022-08-04] MEDS: buPROPion XL 150 MG TAB.ER.24H PO SCH (08:05)
[2022-08-04] MEDS: HEPARIN SODIUM,PORCINE/PF 5,000 UNIT/0.5 ML SYRINGE SQ SCH ×3 (08:05→23:54)
[2022-08-04] MEDS: PANTOPRAZOLE 40 MG/10 ML VIAL IV SCH (08:14)
--- NOTE | 2022-08-04 09:22 | P.PN ---
Subjective Progress Note Date: 08/04/22 Hospital course: Patient is a very pleasant 47-year-old male with a past medical history of hyperlipidemia, GERD, and depression. He presented to the emergency department for chief complaint of abdominal pain. Patient reports that he was initially evaluated at another [facility] facility on [address] and underwent a computed tomography scan. Patient reports that he received a call from his primary care provider to go to the emergency department for evaluation as CT was concerning for acute appendicitis. Patient was admitted under Gen. surgery team and we are consulted for medical management throughout remainder of hospitalization. Physical exam: Patient seen and fully evaluated at bedside. He is postoperative day 2. Patient reports postoperative pain improved but remains mild at this time. Patient denies any episodes of nausea or vomiting and reports tolerating clear liquid diet well. Vital signs reviewed and stable. General: Nontoxic, no distress and appears stated age. Derm: Skin warm and dry, normal coloration for ethnicity. Postoperative dressings clean, dry, and intact. Head: Atraumatic, normocephalic and symmetric. Eyes: EOMs intact, no lid lag, and anicteric sclera Mouth: no lip lesions, mucus membranes moist Cardiovascular: regular rate and rhythm with normal S1S2, no murmur, positive posterior tibial pulses bilaterally, and cap refill < 2 seconds. Lungs: Respirations even, regular, and unlabored on room air. Lungs CTA bilaterally, no rhonchi, no rales, no wheezing, and no accessory muscle usage. Abdominal: soft, nontender to palpation, no guarding, no appreciable or ganomegaly. Aggarwal catheter in place. Ext: ROM intact. No gross muscle atrophy, no edema, no contractures Neuro: Speech clear, face symmetrical and CN II-XII grossly intact with no noted focal neuro deficits Psych: Alert and oriented to person, place, time, and situation. Appropriate and pleasant affect. Assessment and Plan of Care: Subacute appendicitis with abscess formation Status post diagnostic laparoscopy with laparoscopic lysis of adhesions co nversion to laparotomy and ileocecetomy on 08/02/22 -Continue IV antibiotics with Unasyn 3 g every 6 hours and Flagyl 500 mg every 8 hours -Patient tolerating clear liquid diet. -Continue with symptomatic care and as needed pain management with Ofirmev 1000 mg every 6 hours and Dilaudid 0.5 mg for moderate pain and 1 mg IVP for severe pain. -Preliminary cultures resulting positive for gram-negative bacilli, awaiting final culture and sensitivity report. Postoperative blood loss anemia, expected finding. -Morning labs reviewed. CBC Patshowing stable and slightly increased hemoglobin of 10.9. Patient having no signs of active bleeding at this time. Hemoglobin levels stable with no need for transfusion or additional interventions at this time. We will repeat morning CBC and follow up on these results and place additional orders as needed. Hypokalemia -Potassium 3.4. Orders placed for gait her 40 mEq 1 dose. We will repeat BMP with a.m. labs and monitor closely for resolution of hypokalemia. Anxiety and depression -Reviewed Home medications and reordered Wellbutrin 150 mg every 24 hours. GERD -GI prophylaxis with Protonix 40 mg IVP Thank you for allowing us to participate in the care of this pleasant patient. Do not hesitate to contact us with questions. Someone can be reached from the [facility]ist group all hours of the day at [phone] or via [employer]. Patient was seen independently by Nurse Practitioner. This document was prepared using [employer] dictation software. Please allow for errors in workers' compensation claims examiner while rare they do occur. Ramone Apple NP rendered care for this patient independently, reviewed the findings and plan as documented in the note above. I did not physically speak with or examine the patient on this date. Objective - Vital Signs Vital signs: Vital Signs Temp 98.9 F 08/04/22 07:37 Pulse 84 08/04/22 07:37 Resp 14 08/04/22 07:37 BP 112/74 08/04/22 07:37 Pulse Ox 93 L 08/04/22 07:37 FiO2 Intake & Output 08/03/22 08/04/22 08/04/22 18:59 06:59 18:59 Intake Total 1216 1300 Output Total 475 1495 Balance 741 -195 Intake: Intake, IV Titration 86 1300 Amount Ampicillin-Sulbactam 3 gm 200 In Sodium Chloride 0.9% 100 ml @ 200 mls/hr IVPB Q6HR [facility] Rx#:[id number] Ropivacaine 250 mg 86 Hydromorphone (Pf) 5 mg In Sodium Chloride 0.9% 200 ml @ Per Protocol EPIDURAL .Q0M PRN Rx#: [id number] Sodium Chloride 0.9% 1, 900 000 ml @ 130 mls/hr IV . Q7H42M [facility] Rx#:[id number] metroNIDAZOLE-NS PMX 500 200 mg In Saline 1 100ml.bag @ 100 mls/hr IVPB Q8HR [facility] Rx#:[id number] Oral 1130 Output: Drainage 75 55 Abdomen 75 55 Urine 400 1440 Other: Voiding Method Indwelling Catheter Indwelling Catheter # Voids 2 - Labs CBC & Chem 7: 08/05/22 14:12 08/05/22 04:06 Labs: Abnormal Lab Results - Last 24 Hours (Table) 08/03/22 08/03/22 Range/Units 06:25 06:25 RBC 3.51 L (4.40-5.60) X 10*6/uL Hgb 10.6 L (13.0-17.0) g/dL Hct 32.1 L (39.6-50.0) % Immature Gran # 0.11 H (0.00-0.04) X 10*3/uL Neutrophils # 8.10 H (1.80-7.70) X 10*3/uL Eosinophils # 0.01 L (0.04-0.35) X 10*3/uL BUN 8.2 L (9.0-27.0) mg/dL BUN/Creatinine Ratio 10.25 L (12.00-20.00) Ratio Calcium 8.2 L (8.7-10.3) mg/dL Microbiology - Last 24 Hours (Table) 08/02/22 16:29 Gram Stain - Preliminary Aspirate Body Fluid Culture - Preliminary 08/02/22 16:29 Anaerobic Culture - Preliminary Aspirate
[2022-08-04 11:11] LABS: HCT 32.7 % (39.0-53.0); HGB 10.9 gm/dL (13.0-17.5); MCH 29.9 pg (25.0-35.0); MCHC 33.5 g/dL (31.0-37.0); MCV 89.3 fL (80.0-100.0); Mean Platelet Volume 7.5; Platelet Count 315 k/uL (150-450); RBC 3.66 m/uL (4.30-5.90); RDW 12.9 % (11.5-15.5); WBC 7.5 k/uL (3.8-10.6)
[2022-08-04 11:22] LABS: ALT 11 U/L (4-49); AST 19 U/L (17-59); African American GFR (CKD) >90 (>60 ml/min/1.73 sqM); Albumin 2.6 g/dL (3.5-5.0); Albumin/Globulin Ratio 1.2; Alkaline Phosphatase 46 U/L (38-126); Anion Gap 7 mmol/L; Blood Urea Nitrogen 5 mg/dL (9-20); Calcium 7.9 mg/dL (8.4-10.2); Carbon Dioxide 29 mmol/L (22-30); Chloride 100 mmol/L (98-107); Globulin 2.2 g/dL; Glucose 105 mg/dL (74-99); Non-African American GFR(CKD) >90 (>60 ml/min/1.73 sqM); Potassium 3.4 mmol/L (3.5-5.1); Sodium 136 mmol/L (137-145); Total Bilirubin 0.5 mg/dL (0.2-1.3); Total Protein 4.8 g/dL (6.3-8.2)
--- NOTE | 2022-08-04 12:29 | P.PN ---
Progress Note - Text Progress Note Date: 08/04/22 Patient remains stable. He has no new complaints. On exam vitals are still. Abdomen soft. Incisions clean dry tach.. Status post ileal colectomy for severe appendicitis. Patient will have his epidural catheter removed tomorrow.
--- NOTE | 2022-08-04 15:36 | P.PN ---
Subjective Progress Note Date: 08/04/22 Principal diagnosis: Perforated appendicitis and intra-abdominal abscess Patient is a 47-year-old male with a past medical history significant for hyperlipidemia reflux presenting to the hospital for evaluation of right lower quadrant abdominal pain , patient had been diagnosed with a perforated appendicitis with an abscess in this patient was status post laparotomy and ileocecectomy. On today's evaluation that is 08/04/2022, the patient denies having any fever or any chills abdominal pain is currently controlled no chest pain shortness of breath or cough some nausea no vomiting did not have a bowel movement yet Objective - Vital Signs Vital signs: Vital Signs Temp 98.9 F 08/04/22 07:37 Pulse 84 08/04/22 08:19 Resp 14 08/04/22 08:19 BP 112/74 08/04/22 07:37 Pulse Ox 93 L 08/04/22 07:37 FiO2 Intake & Output 08/03/22 08/04/22 08/04/22 18:59 06:59 18:59 Intake Total 1216 1300 Output Total 475 1495 1800 Balance 741 -195 -1800 Intake: Intake, IV Titration 86 1300 Amount Ampicillin-Sulbactam 3 gm 200 In Sodium Chloride 0.9% 100 ml @ 200 mls/hr IVPB Q6HR [facility] Rx#:[id number] Ropivacaine 250 mg 86 Hydromorphone (Pf) 5 mg In Sodium Chloride 0.9% 200 ml @ Per Protocol EPIDURAL .Q0M PRN Rx#: [id number] Sodium Chloride 0.9% 1, 900 000 ml @ 130 mls/hr IV . Q7H42M [facility] Rx#:[id number] metroNIDAZOLE-NS PMX 500 200 mg In Saline 1 100ml.bag @ 100 mls/hr IVPB Q8HR [facility] Rx#:[id number] Oral 1130 Output: Drainage 75 55 Abdomen 75 55 Urine 400 1440 1800 Other: Voiding Method Indwelling Catheter Indwelling Catheter Indwelling Catheter # Voids 2 - Exam GENERAL DESCRIPTION: Middle-age male lying in bed in no distress RESPIRATORY SYSTEM: Unlabored breathing , decreased breath sounds at bases HEART: S1 S2 regular rate and rhythm , ABDOMEN: Soft , mild tenderness - Labs CBC & Chem 7: 08/04/22 10:09 08/04/22 10:09 Labs: Abnormal Lab Results - Last 24 Hours (Table) 08/04/22 08/04/22 Range/Units 10:09 10:09 RBC 3.66 L (4.30-5.90) m/uL Hgb 10.9 L (13.0-17.5) gm/dL Hct 32.7 L (39.0-53.0) % Sodium 136 L (137-145) mmol/L Potassium 3.4 L (3.5-5.1) mmol/L BUN 5 L (9-20) mg/dL Creatinine 0.65 L (0.66-1.25) mg/dL Glucose 105 H (74-99) mg/dL Calcium 7.9 L (8.4-10.2) mg/dL Total Protein 4.8 L (6.3-8.2) g/dL Albumin 2.6 L (3.5-5.0) g/dL Microbiology - Last 24 Hours (Table) 08/02/22 16:29 Gram Stain - Preliminary Aspirate Body Fluid Culture - Preliminary Gram Neg Bacilli 08/02/22 16:29 Anaerobic Culture - Preliminary Aspirate Assessment and Plan (1) Intra-abdominal abscess Current Visit: Yes Status: Acute Code(s): K65.1 - PERITONEAL ABSCESS SNOMED Code(s): 03136398 (2) Acute appendicitis Current Visit: Yes Status: Acute Code(s): K35.80 - UNSPECIFIED ACUTE APPENDICITIS SNOMED Code(s): 18101939 Plan: 1patient present to hospital abdominal pain noticed to have a appendicitis with abscess formation status post laparotomy and ileocecectomy, we will need to call for the enteric gram-negative both aerobes and anaerobes 2-patient white count is normal, abdominal cultures currently growing gram- negative bacilli with ID sensitivities pending, patient to continue with Unasyn 3 g every 6 hours while waiting for the culture to finalize Family the bedside questions were answered Time with Patient: Less than 30
[2022-08-04] MEDS ORDERED: POTASSIUM CHLORIDE ER 20 MEQ TAB.ER PO STA (16:47)
[2022-08-04] MEDS: ONDANSETRON 4 MG/2 ML VIAL IVP PRN (18:36)
[2022-08-04] MEDS: ROPIVACAINE 250 MG, HYDROMORPHONE (PF) 5 MG in SODIUM CHLORIDE 0.9% 200 ML EPIDURAL PRN (23:44)
[2022-08-05] MEDS: AMPICILLIN-SULBACTAM 3 GM in SODIUM CHLORIDE 0.9% 100 ML IVPB SCH ×2 (00:56→06:34)
[2022-08-05] MEDS: ONDANSETRON 4 MG/2 ML VIAL IVP PRN ×3 (06:48→20:14)
[2022-08-05] MEDS: HEPARIN SODIUM,PORCINE/PF 5,000 UNIT/0.5 ML SYRINGE SQ SCH ×3 (08:08→23:39)
[2022-08-05] MEDS: buPROPion XL 150 MG TAB.ER.24H PO SCH (08:28)
[2022-08-05] MEDS: metroNIDAZOLE-NS PMX 500 MG in SALINE 1 100ML.BAG IVPB SCH ×2 (08:29→18:19)
[2022-08-05] MEDS: PANTOPRAZOLE 40 MG/10 ML VIAL IV SCH (08:29)
[2022-08-05 09:46] LABS: MCH 29.8 pg (27.0-32.0); MCHC 32.4 g/dL (32.0-37.0); MCV 92.1 fL (80.0-97.0); Mean Platelet Volume 9.9 fL (9.5-12.2); NRBC Per 100 WBC 0 /100 WBCS (0.0-0.0); Platelet Count 320 X 10*3/uL (140-440); RBC 3.69 X 10*6/uL (4.40-5.60); RDW 12.3 % (11.5-14.5); WBC 7.29 X 10*3/uL (4.50-10.00)
[2022-08-05 09:48] LABS: African American GFR (CKD) 132.1 (60.0-200.0); Albumin/Globulin Ratio 1.58 (1.60-3.17); Anion Gap 9.3 mmol/L (10.00-18.00); BUN/Creat Ratio 5.71 Ratio (12.00-20.00); Calcium 8.6 mg/dL (8.7-10.3); Carbon Dioxide 28.7 mmol/L (20.0-27.5); Globulin 1.9 g/dL (1.6-3.3); Total Bilirubin 0.3 mg/dL (0.30-1.20); Total Protein 4.9 g/dL (6.2-8.2)
[2022-08-05 09:49] LABS: Magnesium 2.1 mg/dL (1.5-2.4)
--- NOTE | 2022-08-05 10:03 | P.PN ---
Progress Note - Text 08/03/22 1764 47-year-old male status post explore lap by Dr. Jackson. Patient has an epidural catheter for postop pain control with the solution running at 8 mL an hour with a VAS of 6 no motor or sensory deficits noted. Plan to continue epidural infusion patient does not want increasing the rate as a result in pruritus
--- NOTE | 2022-08-05 10:04 | P.PN ---
Progress Note - Text 08/04/22 2620 47-year-old male status post exploratory lap by Dr. Jackson. Patient has an epidural catheter with the solution running at 8 mL an hour with a VAS of 3. No motor or sensory deficits noted. Plan to continue epidural infusion
--- NOTE | 2022-08-05 10:04 | P.PN ---
Progress Note - Text 08/05/22 633am 47-year-old male status post exploratory lap by Dr. Jackson. Patient has an epidural catheter with the solution running at 8 mL an hour with a VAS of 0. No motor or sensory deficit noted dressing clean dry and intact. Plan to DC epidural nurse informed
--- NOTE | 2022-08-05 10:16 | P.PN ---
Subjective Progress Note Date: 08/05/22 Hospital course: Patient is a very pleasant 47-year-old male with a past medical history of hyperlipidemia, GERD, and depression. He presented to the emergency department for chief complaint of abdominal pain. Patient reports that he was initially evaluated at another [facility] facility on [address] and underwent a computed tomography scan. Patient reports that he received a call from his primary care provider to go to the emergency department for evaluation as CT was concerning for acute appendicitis. Patient was admitted under Gen. surgery team and we are consulted for medical management throughout remainder of hospitalization. Physical exam: Patient seen and fully evaluated at bedside. He is postoperative day 3. Patient reports postoperative pain has became different and slightly worsened described more as a cramping sensation. Patient also reports STEPHEN drain being filled and emptied 3 times this morning. Notify general surgeon of patient's reports/changes. Patient denies any episodes of nausea or vomiting and continues tolerating clear liquid diet well. Morning labs reviewed and hemoglobin is stable at 11.0. Vital signs reviewed and stable. General: Nontoxic, no distress and appears stated age. Derm: Skin warm and dry, normal coloration for ethnicity. Postoperative dressings clean, dry, and intact. Head: Atraumatic, normocephalic and symmetric. Eyes: EOMs intact, no lid lag, and anicteric sclera Mouth: no lip lesions, mucus membranes moist Cardiovascular: regular rate and rhythm with normal S1S2, no murmur, positive posterior tibial pulses bilaterally, and cap refill < 2 seconds. Lungs: Respirations even, regular, and unlabored on room air. Lungs CTA bilaterally, no rhonchi, no rales, no wheezing, and no accessory muscle usage. Abdominal: soft, nontender to palpation, no guarding, no appreciable organomegaly. Aggarwal catheter in place. Ext: ROM intact. No gross muscle atrophy, no edema, no contractures Neuro: Speech clear, face symmetrical and CN II-XII grossly intact with no noted focal neuro deficits Psych: Alert and oriented to person, place, time, and situation. Appropriate and pleasant affect. Assessment and Plan of Care: Subacute appendicitis with abscess formation Status post diagnostic laparoscopy with laparoscopic lysis of adhesions conversion to laparotomy and ileocecetomy on 08/02/22 -Continue IV antibiotics with Unasyn 3 g every 6 hours and Flagyl 500 mg every 8 hours -Continue clear liquid diet, diet to be advanced by general surgery team. -Continue with symptomatic care and as needed pain management with Ofirmev 1000 mg every 6 hours and Dilaudid 0.5 mg for moderate pain and 1 mg IVP for severe pain. -Preliminary cultures resulting positive for gram-negative bacilli, awaiting final culture and sensitivity report. Postoperative blood loss anemia, expected finding. -Morning labs reviewed. CBC showing stable and slightly increased hemoglobin of 11.0. Patient having no signs of active bleeding at this time. He reports incre ased output from STEPHEN drain. Hemoglobin levels stable with no need for transfusion or additional interventions at this time. We will repeat morning CBC and follow up on these results and place additional orders as needed. Hypokalemia, resolved -Potassium increasing from 3.4 up to 4.0 this morning. We will repeat BMP with a.m. labs and monitor closely for resolution of hypokalemia. Anxiety and depression -Reviewed Home medications and reordered Wellbutrin 150 mg every 24 hours. GERD -GI prophylaxis with Protonix 40 mg IVP Thank you for allowing us to participate in the care of this pleasant patient. Do not hesitate to contact us with questions. Someone can be reached from the [facility] hospitalist group all hours of the day at [phone] or via [employer]. Patient was seen independently by Nurse Practitioner. This document was prepared using [employer] dictation software. Please allow for errors in pipeline superintendent division while rare they do occur. Ramone Apple NP rendered care for this patient independently, reviewed the findings and plan as documented in the note above. I did not physically speak with or examine the patient on this date. Objective - Vital Signs Vital signs: Vital Signs Temp 98.7 F 08/05/22 07:00 Pulse 99 08/05/22 07:00 Resp 17 08/04/22 19:34 BP 121/81 08/05/22 07:00 Pulse Ox 95 08/05/22 08:02 FiO2 Intake & Output 08/04/22 08/05/22 08/05/22 18:59 06:59 18:59 Intake Total 250 118 Output Total 3900 1190 Balance -3900 -940 118 Intake: Intake, IV Titration 250 Amount Ropivacaine 250 mg 250 Hydromorphone (Pf) 5 mg In Sodium Chloride 0.9% 200 ml @ Per Protocol EPIDURAL .Q0M PRN Rx#: [id number] Oral 118 Output: Drainage 100 90 Abdomen 100 90 Urine 3800 1100 Other: Voiding Method Indwelling Catheter Indwelling Catheter - Labs CBC & Chem 7: 08/05/22 14:12 08/05/22 04:06 Labs: Abnormal Lab Results - Last 24 Hours (Table) 08/04/22 08/04/22 Range/Units 10:09 10:09 RBC 3.66 L (4.30-5.90) m/uL Hgb 10.9 L (13.0-17.5) gm/dL Hct 32.7 L (39.0-53.0) % Sodium 136 L (137-145) mmol/L Potassium 3.4 L (3.5-5.1) mmol/L BUN 5 L (9-20) mg/dL Creatinine 0.65 L (0.66-1.25) mg/dL Glucose 105 H (74-99) mg/dL Calcium 7.9 L (8.4-10.2) mg/dL Total Protein 4.8 L (6.3-8.2) g/dL Albumin 2.6 L (3.5-5.0) g/dL Microbiology - Last 24 Hours (Table) 08/02/22 16:29 Gram Stain - Preliminary Aspirate Body Fluid Culture - Preliminary Gram Neg Bacilli
[2022-08-05] MEDS: ACETAMINOPHEN IV (For NPO) 1,000 MG in EMPTY BAG 1 BAG IVPB SCH ×3 (10:19→23:38)
[2022-08-05] MEDS: SCOPOLAMINE 1 MG/72 HR PATCH TRANSDERM SCH (10:24)
[2022-08-05] MEDS: PIPERACILLIN-TAZOBACTAM 3.375 GM in SODIUM CHLORIDE 0.9% 100 ML IVPB SCH ×2 (11:20→20:14)
[2022-08-05] MEDS: HYDROmorphone 1 MG/ML 1 ML SYRINGE IVP PRN ×2 (11:23→15:31)
--- NOTE | 2022-08-05 12:09 | P.PN ---
Subjective Progress Note Date: 08/05/22 CHIEF COMPLAINT: Subacute appendicitis with abscess formation HISTORY OF PRESENT ILLNESS: Patient is postop day #3 status post Diagnostic laparoscopy, laparoscopic lysis of adhesions, conversion to laparotomy with ileocecectomy. Epidural and Aggarwal catheter discontinued today. Patient complains of abdominal bloating with belching and nausea. Denies any flatus or bowel movement. STEPHEN drain with significant amount of output. The color is dark blood. He had 180ml output during the night and a total of 290 this morning. STEPHEN drain filling while in the room. Afebrile. WBC is 7.29 Hgb is 11 platelets 320 sodium is 139 potassium 4.0 creatinine 0.7 PHYSICAL EXAM: VITAL SIGNS: Reviewed. GENERAL: Well-developed in no acute distress. HEENT: No sclera icterus. Extraocular movements grossly intact. Moist buccal mucosa. Head is atraumatic, normocephalic. ABDOMEN: Soft. Mildly distended. Minimal tenderness at incision site. Incision is clean dry and intact. STEPHEN drain with dark blood NEUROLOGIC: Alert and oriented. Cranial nerves II through XII grossly intact. ASSESSMENT: 1. Subacute appendicitis with abscess formation status post Diagnostic laparoscopy, laparoscopic lysis of adhesions, conversion to laparotomy with ileocecectomy PLAN: -Continue to monitor STEPHEN drain output -Change IV Dilaudid to 1 mg every 3 hours as needed for pain -Add IV Tylenol scheduled -Continue antibiotics -Follow up on repeat CBC this afternoon -Add scopolamine patch for nausea -GI prophylaxis Protonix and DVT prophylaxis subcu heparin Physician Road Supervisor note has been reviewed by physician. Signing provider agrees with the documented findings, assessment, and plan of care. I have personally seen and examined the patient, reviewed the DEWER /PAs history, exam and MDM and agree with the assessment and plan as written. Based on total visit time, I have performed more than 50% of the visit. As above: Patient had increased STEPHEN drainage today. On exam the drain fluid is serosanguineous. His hemoglobin has actually increased today. He is nauseated. Continue with liquids. Continue antibiotics per infectious disease. Keep drain in place. I suspect with movement the drain entered into a pocket of fluid both reactive and from our excessive irrigation intraoperatively. Continue increasing activity as tolerated. Objective - Vital Signs Vital signs: Vital Signs Temp 98.7 F 08/05/22 07:00 Pulse 99 08/05/22 07:00 Resp 17 08/05/22 08:00 BP 121/81 08/05/22 07:00 Pulse Ox 95 08/05/22 08:02 FiO2 Intake & Output 08/04/22 08/05/22 08/05/22 18:59 06:59 18:59 Intake Total 250 118 Output Total 3900 1190 Balance -3900 -940 118 Intake: Intake, IV Titration 250 Amount Ropivacaine 250 mg 250 Hydromorphone (Pf) 5 mg In Sodium Chloride 0.9% 200 ml @ Per Protocol EPIDURAL .Q0M PRN Rx#: [id number] Oral 118 Output: Drainage 100 90 Abdomen 100 90 Urine 3800 1100 Other: Voiding Method Indwelling Catheter Indwelling Catheter Indwelling Catheter - Labs CBC & Chem 7: 08/05/22 14:12 08/05/22 04:06 Labs: Abnormal Lab Results - Last 24 Hours (Table) 08/05/22 08/05/22 Range/Units 04:06 04:06 RBC 3.69 L (4.40-5.60) X 10*6/uL Hgb 11.0 L (13.0-17.0) g/dL Hct 34.0 L (39.6-50.0) % Carbon Dioxide 28.7 H (20.0-27.5) mmol/L Anion Gap 9.30 L (10.00-18.00) mmol/L BUN 4.0 L (9.0-27.0) mg/dL BUN/Creatinine Ratio 5.71 L (12.00-20.00) Ratio Calcium 8.6 L (8.7-10.3) mg/dL Total Protein 4.9 L (6.2-8.2) g/dL Albumin 3.0 L (3.8-4.9) g/dL Albumin/Globulin Ratio 1.58 L (1.60-3.17) g/dL Microbiology - Last 24 Hours (Table) 08/02/22 16:29 Gram Stain - Final Aspirate Body Fluid Culture - Final Escherichia coli Diphtheroid species
[2022-08-05 14:48] LABS: HCT 37.6 % (39.0-53.0); HGB 12.6 gm/dL (13.0-17.5); MCH 30.3 pg (25.0-35.0); MCHC 33.6 g/dL (31.0-37.0); MCV 90.2 fL (80.0-100.0); Mean Platelet Volume 7.8; Platelet Count 313 k/uL (150-450); RBC 4.17 m/uL (4.30-5.90); RDW 12.9 % (11.5-15.5)
[2022-08-06] MEDS: metroNIDAZOLE-NS PMX 500 MG in SALINE 1 100ML.BAG IVPB SCH ×4 (00:07→23:40)
[2022-08-06] MEDS: ONDANSETRON 4 MG/2 ML VIAL IVP PRN ×4 (01:32→21:06)
[2022-08-06] MEDS: PIPERACILLIN-TAZOBACTAM 3.375 GM in SODIUM CHLORIDE 0.9% 100 ML IVPB SCH ×3 (03:54→21:03)
[2022-08-06] MEDS: ACETAMINOPHEN IV (For NPO) 1,000 MG in EMPTY BAG 1 BAG IVPB SCH ×4 (06:17→23:40)
--- NOTE | 2022-08-06 07:22 | P.PN ---
Subjective Progress Note Date: 08/05/22 Principal diagnosis: Perforated appendicitis and intra-abdominal abscess Patient is a 47-year-old male with a past medical history significant for hyperlipidemia reflux presenting to the hospital for evaluation of right lower quadrant abdominal pain , patient had been diagnosed with a perforated appendicitis with an abscess in this patient was status post laparotomy and ileocecectomy. On today's evaluation that is 08/05/2022, the patient remains to be afebrile, the patient complaining of more abdominal pain after discontinuation of his MANAGER LAB and also noticed having increasing drainage in the STEPHEN per the nursing staff some nausea but no vomiting no chest pain shortness of breath or cough did not have a bowel movement Objective - Vital Signs Vital signs: Vital Signs Temp 98.7 F 08/05/22 07:00 Pulse 99 08/05/22 07:00 Resp 17 08/05/22 08:00 BP 121/81 08/05/22 07:00 Pulse Ox 95 08/05/22 08:02 FiO2 Intake & Output 08/04/22 08/05/22 08/05/22 18:59 06:59 18:59 Intake Total 250 118 Output Total 3900 1190 Balance -3900 -940 118 Intake: Intake, IV Titration 250 Amount Ropivacaine 250 mg 250 Hydromorphone (Pf) 5 mg In Sodium Chloride 0.9% 200 ml @ Per Protocol EPIDURAL .Q0M PRN Rx#: [id number] Oral 118 Output: Drainage 100 90 Abdomen 100 90 Urine 3800 1100 Other: Voiding Method Indwelling Catheter Indwelling Catheter Indwelling Catheter - Exam GENERAL DESCRIPTION: Middle-age male lying in bed in no distress RESPIRATORY SYSTEM: Unlabored breathing , decreased breath sounds at bases HEART: S1 S2 regular rate and rhythm , ABDOMEN: Soft , mild tenderness - Labs CBC & Chem 7: 08/05/22 14:12 08/05/22 04:06 Labs: Abnormal Lab Results - Last 24 Hours (Table) 08/04/22 08/04/22 08/05/22 Range/Units 10:09 10:09 04:06 RBC 3.66 L 3.69 L (4.30-5.90) m/uL Hgb 10.9 L 11.0 L (13.0-17.5) gm/dL Hct 32.7 L 34.0 L (39.0-53.0) % Sodium 136 L (137-145) mmol/L Potassium 3.4 L (3.5-5.1) mmol/L Carbon Dioxide (20.0-27.5) mmol/L Anion Gap (10.00-18.00) mmol/L BUN 5 L (9-20) mg/dL Creatinine 0.65 L (0.66-1.25) mg/dL BUN/Creatinine Ratio (12.00-20.00) Ratio Glucose 105 H (74-99) mg/dL Calcium 7.9 L (8.4-10.2) mg/dL Total Protein 4.8 L (6.3-8.2) g/dL Albumin 2.6 L (3.5-5.0) g/dL Albumin/Globulin Ratio (1.60-3.17) g/dL 08/05/22 Range/Units 04:06 RBC (4.30-5.90) m/uL Hgb (13.0-17.5) gm/dL Hct (39.0-53.0) % Sodium (137-145) mmol/L Potassium (3.5-5.1) mmol/L Carbon Dioxide 28.7 H (20.0-27.5) mmol/L Anion Gap 9.30 L (10.00-18.00) mmol/L BUN 4.0 L (9-20) mg/dL Creatinine (0.66-1.25) mg/dL BUN/Creatinine Ratio 5.71 L (12.00-20.00) Ratio Glucose (74-99) mg/dL Calcium 8.6 L (8.4-10.2) mg/dL Total Protein 4.9 L (6.3-8.2) g/dL Albumin 3.0 L (3.5-5.0) g/dL Albumin/Globulin Ratio 1.58 L (1.60-3.17) g/dL Microbiology - Last 24 Hours (Table) 08/02/22 16:29 Gram Stain - Final Aspirate Body Fluid Culture - Final Escherichia coli Diphtheroid species Assessment and Plan (1) Intra-abdominal abscess Current Visit: Yes Status: Acute Code(s): K65.1 - PERITONEAL ABSCESS SNOMED Code(s): 86677520 (2) Acute appendicitis Current Visit: Yes Status: Acute Code(s): K35.80 - UNSPECIFIED ACUTE APPENDICITIS SNOMED Code(s): 33689677 Plan: 1patient present to hospital abdominal pain noticed to have a appendicitis with abscess formation status post laparotomy and ileocecectomy, we will need to call for the enteric gram-negative both aerobes and anaerobes 2-patient white count is normal, abdominal cultures decrease E. coli which is intermediate sensitivity to Unasyn and diphtheroid species we will discontinue Unasyn and start the patient on Zosyn and monitor his clinical course closely Time with Patient: Less than 30
[2022-08-06] MEDS: PANTOPRAZOLE 40 MG/10 ML VIAL IV SCH (08:49)
[2022-08-06] MEDS: HEPARIN SODIUM,PORCINE/PF 5,000 UNIT/0.5 ML SYRINGE SQ SCH ×3 (08:49→23:40)
[2022-08-06] MEDS: buPROPion XL 150 MG TAB.ER.24H PO SCH (09:02)
[2022-08-06 09:54] LABS: Magnesium 1.8 mg/dL (1.5-2.4)
[2022-08-06 10:14] LABS: African American GFR (CKD) 132.1 (60.0-200.0); Albumin 3.5 g/dL (3.8-4.9); Albumin/Globulin Ratio 1.59 (1.60-3.17); Anion Gap 18.8 mmol/L (10.00-18.00); BUN/Creat Ratio 14.14 Ratio (12.00-20.00); Blood Urea Nitrogen 9.9 mg/dL (9.0-27.0); Calcium 9.2 mg/dL (8.7-10.3); Carbon Dioxide 22.2 mmol/L (20.0-27.5); Globulin 2.2 g/dL (1.6-3.3); Potassium 3.6 mmol/L (3.5-5.5); Total Bilirubin 0.4 mg/dL (0.30-1.20); Total Protein 5.7 g/dL (6.2-8.2)
[2022-08-06 10:16] LABS: HCT 41.1 % (39.6-50.0); HGB 13.8 g/dL (13.0-17.0); MCH 30.1 pg (27.0-32.0); MCHC 33.6 g/dL (32.0-37.0); MCV 89.5 fL (80.0-97.0); NRBC Per 100 WBC 0 /100 WBCS (0.0-0.0); Platelet Count 424 X 10*3/uL (140-440); RBC 4.59 X 10*6/uL (4.40-5.60); RDW 12.4 % (11.5-14.5); WBC 8.09 X 10*3/uL (4.50-10.00)
[2022-08-06] MEDS ORDERED: SODIUM CHLORIDE 0.9% 1,000 ML IV ONE (10:39)
[2022-08-06] MEDS: KETOROLAC 15 MG/ML 1 ML VIAL IVP SCH ×3 (11:15→23:41)
--- NOTE | 2022-08-06 11:52 | XR ---
EXAMINATION TYPE: XR abdomen 2V DATE OF EXAM: 08/06/2022 COMPARISON: None HISTORY: 47-year-old male abdominal pain, nausea/vomiting status post surgery. FINDINGS: On the upright view, there is mild free intraperitoneal air below the right hemidiaphragm. There is residual oral contrast material seen throughout the colon extending distally to the rectum. Relative paucity of colonic air. Numerous dilated small bowel loops are present, some distended up to 4.9 cm and containing air-fluid levels. Surgical drain is present within the upper pelvis. Anterior midline skin balaji lower abdomen/pelvis region. IMPRESSION: 1. Mild free intraperitoneal air below the right hemidiaphragm. Likely due to patient's recent surger y. 2. A surgical drain is present along the lower abdomen/pelvis region. 3. Numerous dilated small bowel loops with air-fluid levels. Loops are distended up to 4.9 cm. Findin gs are nonspecific and could reflect postoperative ileus or small bowel obstruction. Follow-up can be performed. The former is favored given patient's recent surgery.
[2022-08-06] MEDS ORDERED: KETOROLAC 15 MG/ML 1 ML VIAL IVP SCH (12:00)
--- NOTE | 2022-08-06 12:39 | P.PN ---
Subjective Progress Note Date: 08/06/22 CHIEF COMPLAINT: Subacute appendicitis with abscess formation HISTORY OF PRESENT ILLNESS: Patient is postop day #4 status post Diagnostic laparoscopy, laparoscopic lysis of adhesions, conversion to laparotomy with ileocecectomy. patient complaining of multiple episodes of vomiting during the night and once this morning. He is having small flatus. He does have some abdominal pain. He has been up and ambulating. Patient does report that the Dilaudid causes more nausea. His urine is very dark urine output is decreased. STEPHEN drain with 220 mL through the night with serosanguineous color. It is li ghter than yesterday. Hemoglobin stable and increasing at 13.8 WBC is 8.09 platelets 424 sodium 140 potassium 3.6 creatinine 0.7 AST 92 and ALT 77 Epidural and Aggarwal catheter discontinued today. Patient complains of abdominal bloating with belching and nausea. Denies any flatus or bowel movement. STEPHEN drain with significant amount of output. The color is dark blood. He had 180ml output during the night and a total of 290 this morning. STEPHEN drain filling while in the room. Afebrile. WBC is 7.29 Hgb is 11 platelets 320 sodium is 139 potassium 4.0 creatinine 0.7 PHYSICAL EXAM: VITAL SIGNS: Reviewed. GENERAL: Well-developed in no acute distress. HEENT: No sclera icterus. Extraocular movements grossly intact. Moist buccal mucosa. Head is atraumatic, normocephalic. ABDOMEN: Soft and less distended. Minimal tenderness at incision site. Incision is clean dry and intact. STEPHEN drain with serosanguineous NEUROLOGIC: Alert and oriented. Cranial nerves II through XII grossly intact. ASSESSMENT: 1. Subacute appendicitis with abscess formation status post Diagnostic laparoscopy, laparoscopic lysis of adhesions, conversion to laparotomy with ileocecectomy 2. Postoperative nausea and vomiting 3. Mildly elevated LFTs PLAN: -We'll give 1 L IV fluid for bolus due to dehydration and low urine output -Add IV Toradol for pain -Continue antiemetics -Check abdominal x-ray for possible ileus -Keep patient nothing by mouth -Continue to monitor STEPHEN drain output -Continue antibiotics -Encourage patient to ambulate -Repeat labs in a.m. -GI prophylaxis Protonix and DVT prophylaxis subcu heparin Physician Water/Wastewater Project Manager note has been reviewed by physician. Signing provider agrees with the documented findings, assessment, and plan of care. I have personally seen and examined the patient, reviewed the SEMICONDUCTOR WAFERS ETCHER STRIPPER /PAs history, exam and MDM and agree with the assessment and plan as written. Based on total visit time, I have performed more than 50% of the visit. As above: Patient says he feels better than he did yesterday afternoon. Still nauseated. Complains of some bloating. Abdominal x-rays show dilated small bowel loops and a small amount of free air. Says his pain in the abdomen is better than it was preoperatively. Describes it as being uncomfortable. He is ambulating. He did have a small bowel movement. Last episode of vomiting this morning at 4 AM. Labs noted. Mild liver enzyme elevation. Continue bowel rest and IV hydration. Will increase fluids to 1 50/h and given another 500 mL bolus of saline. Wellbutrin has been held and will consider Reglan tomorrow if ileus persists. Objective - Vital Signs Vital signs: Vital Signs Temp 98.7 F 08/06/22 06:40 Pulse 93 08/06/22 06:40 Resp 18 08/06/22 06:40 BP 112/72 08/06/22 06:40 Pulse Ox 93 L 08/06/22 06:40 FiO2 Intake & Output 08/05/22 08/06/22 08/06/22 18:59 06:59 18:59 Intake Total 218 Output Total 5150 096 5486 Balance -882 565 -1200 Intake: Oral 218 Output: Drainage 450 445 Abdomen 450 445 Urine 650 120 Uretheral (Aggarwal) 650 Emesis 1200 Other: Voiding Method Indwelling Catheter Urinal # Voids 1 - Labs CBC & Chem 7: 08/06/22 05:16 08/06/22 05:16 Labs: Abnormal Lab Results - Last 24 Hours (Table) 08/05/22 08/06/22 Range/Units 14:12 05:16 RBC 4.17 L (4.30-5.90) m/uL Hgb 12.6 L (13.0-17.5) gm/dL Hct 37.6 L (39.0-53.0) % Anion Gap 18.80 H (10.00-18.00) mmol/L Glucose 126 H (70-110) mg/dL AST 92 H (14-35) U/L ALT 77 H (10-49) U/L Total Protein 5.7 L (6.2-8.2) g/dL Albumin 3.5 L (3.8-4.9) g/dL Albumin/Globulin Ratio 1.59 L (1.60-3.17) g/dL Microbiology - Last 24 Hours (Table) 08/02/22 16:29 Gram Stain - Final Aspirate Body Fluid Culture - Final Escherichia coli Diphtheroid species
--- NOTE | 2022-08-06 13:19 | P.PN ---
Subjective Progress Note Date: 08/06/22 Hospital course: Patient is a very pleasant 47-year-old male with a past medical history of hyp erlipidemia, GERD, and depression. He presented to the emergency department for chief complaint of abdominal pain. Patient reports that he was initially evaluated at another [facility] facility on [address] and underwent a computed tomography scan. Patient reports that he received a call from his primary care provider to go to the emergency department for evaluation as CT was concerning for acute appendicitis. Patient was admitted under Gen. surgery team and we are consulted for medical management throughout remainder of hospitalization. Today patient states that his nausea vomiting is worse. He states is not able to keep anything down. He states that he had bilious vomiting last night. I confirmed with the nurses said the patient did have bilious vomiting. Physical exam: General examination - Alert and Oriented 3 in NAD Heart - + S1S2 no murmurs Lungs - Clear to auscultation Abdomen soft mild diffuse tenderness to palpate, bandages on surgical sites are intact and dry, ND +ve BS Extremities - No edema LENS SILVERER - Moving all 4 extremities spontaneously Psych - Calm and cooperative Assessment Vital signs reviewed and are stable Data reviewed: Patient's AST increased from 25-92 and ALT increased from 13-77. Abdominal x-ray shows mild free intraperitoneal air below the right hemidiaphragm likely due to the patient's recent surgery, numerous dilated small bowel loops with air-fluid levels consistent with postoperative ileus or small bowel obstruction. Cultures from surgery grew E. coli and diphtheroid species that was sensitive to Zosyn Subacute appendicitis with abscess formation Postop ileus Mild transaminitis Status post ileocecectomy on 08/02/2022 Postoperative blood loss anemia which is expected; hemoglobin stable Hypokalemia; resolved Anxiety and depression GERD Plan Avoid opioids I encouraged patient to ambulate in the hallways Continue with aggressive IV fluids Monitor CMP Resume IV Zosyn -> ID managing antibiotics. Patient also on IV Flagyl as per primary service DVT prophylaxis: Subcu heparin Anticipated discharge: Depending on clinical course Anticipated discharge place: Home Objective - Vital Signs Vital signs: Vital Signs Temp 98.7 F 08/06/22 06:40 Pulse 93 08/06/22 06:40 Resp 18 08/06/22 06:40 BP 112/72 08/06/22 06:40 Pulse Ox 93 L 08/06/22 06:40 FiO2 Intake & Output 08/05/22 08/06/22 08/06/22 18:59 06:59 18:59 Intake Total 218 Output Total 4212 684 1256 Balance -228 -299 -1200 Intake: Oral 218 Output: Drainage 450 445 Abdomen 450 445 Urine 650 120 Uretheral (Aggarwal) 650 Emesis 1200 Other: Voiding Method Indwelling Catheter Urinal # Voids 1 - Labs CBC & Chem 7: 08/06/22 05:16 08/06/22 05:16 Labs: Abnormal Lab Results - Last 24 Hours (Table) 08/05/22 08/06/22 Range/Units 14:12 05:16 RBC 4.17 L (4.30-5.90) m/uL Hgb 12.6 L (13.0-17.5) gm/dL Hct 37.6 L (39.0-53.0) % Anion Gap 18.80 H (10.00-18.00) mmol/L Glucose 126 H (70-110) mg/dL AST 92 H (14-35) U/L ALT 77 H (10-49) U/L Total Protein 5.7 L (6.2-8.2) g/dL Albumin 3.5 L (3.8-4.9) g/dL Albumin/Globulin Ratio 1.59 L (1.60-3.17) g/dL Microbiology - Last 24 Hours (Table) 08/02/22 16:29 Gram Stain - Final Aspirate Body Fluid Culture - Final Escherichia coli Diphtheroid species
[2022-08-06] MEDS ORDERED: SODIUM CHLORIDE 0.9% 500 ML 500 ML IV ONE (16:23)
[2022-08-06] MEDS: SODIUM CHLORIDE 0.9% 1,000 ML IV SCH ×2 (16:33→23:39)
[2022-08-07] MEDS: KETOROLAC 15 MG/ML 1 ML VIAL IVP SCH ×4 (05:01→23:50)
[2022-08-07] MEDS: PIPERACILLIN-TAZOBACTAM 3.375 GM in SODIUM CHLORIDE 0.9% 100 ML IVPB SCH ×3 (05:02→21:25)
[2022-08-07] MEDS: ACETAMINOPHEN IV (For NPO) 1,000 MG in EMPTY BAG 1 BAG IVPB SCH ×4 (05:02→23:50)
[2022-08-07] MEDS: HEPARIN SODIUM,PORCINE/PF 5,000 UNIT/0.5 ML SYRINGE SQ SCH ×3 (08:27→23:44)
[2022-08-07] MEDS: metroNIDAZOLE-NS PMX 500 MG in SALINE 1 100ML.BAG IVPB SCH ×3 (08:27→23:44)
[2022-08-07] MEDS: PANTOPRAZOLE 40 MG/10 ML VIAL IV SCH (08:27)
[2022-08-07] MEDS: SODIUM CHLORIDE 0.9% 1,000 ML IV SCH ×3 (08:28→22:38)
[2022-08-07] MEDS: buPROPion XL 150 MG TAB.ER.24H PO SCH (08:28)
[2022-08-07] MEDS: ONDANSETRON 4 MG/2 ML VIAL IVP PRN ×2 (08:36→15:35)
[2022-08-07 10:10] LABS: Basophils # (A) 0.05 X 10*3/uL (0.00-0.10); Basophils % (A) 0.8 %; Eosinophils # (A) 0.29 X 10*3/uL (0.04-0.35); Eosinophils % (A) 4.8 %; HCT 32.6 % (39.6-50.0); Immature Grans, Automated 0.3 %; Lymphocytes # (A) 0.88 X 10*3/uL (0.90-5.00); Lymphocytes % (A) 14.4 %; MCH 30.6 pg (27.0-32.0); MCHC 33.7 g/dL (32.0-37.0); MCV 90.6 fL (80.0-97.0); Mean Platelet Volume 9.8 fL (9.5-12.2); Monocytes # (A) 0.47 X 10*3/uL (0.20-1.00); Monocytes % (A) 7.7 %; NRBC Per 100 WBC 0 /100 WBCS (0.0-0.0); Neutrophils # (A) 4.39 X 10*3/uL (1.80-7.70); Platelet Count 365 X 10*3/uL (140-440); RDW 12.8 % (11.5-14.5)
--- NOTE | 2022-08-07 11:17 | P.PN ---
Subjective Progress Note Date: 08/07/22 CHIEF COMPLAINT: Subacute appendicitis with abscess formation HISTORY OF PRESENT ILLNESS: Patient is postop day #5 status post Diagnostic laparoscopy, laparoscopic lysis of adhesions, conversion to laparotomy with ileocecectomy. Patient did have 2 episodes of vomiting last night. He does report some nausea this morning. He did have 4 loose stools during the evening. He is having flatus. He has been up ambulating. He reports that his pain is tolerable and improving. The abdominal bloating has also improved. He feels that if he could have some liquids that it would actually help with the nausea. STEPHEN drain sanguinous with 130 mL out through the night. Afebrile. WBC is 6.10 Hgb 11.0 platelets 365 CMP pending. Urine output improving with IV increased IV fluids and boluses. PHYSICAL EXAM: VITAL SIGNS: Reviewed. GENERAL: Well-developed in no acute distress. HEENT: No sclera icterus. Extraocular movements grossly intact. Moist buccal mucosa. Head is atraumatic, normocephalic. ABDOMEN: Soft. Nondistended. Incision site clean dry and intact. STEPHEN drain sanguinous output. NEUROLOGIC: Alert and oriented. Cranial nerves II through XII grossly intact. ASSESSMENT: 1. Subacute appendicitis with abscess formation status post Diagnostic laparoscopy, laparoscopic lysis of adhesions, conversion to laparotomy with ileocecectomy 2. Postoperative ileus 3. Mildly elevated LFTs PLAN: -Start sips of clears -Continue IV fluids -Encouraged patient to ambulate -Continue pain management -Continue antiemetics -Continue to monitor STEPHEN drain output -Continue antibiotics -GI prophylaxis Protonix and DVT prophylaxis subcu heparin Physician Water Quality Specialist note has been reviewed by physician. Signing provider agrees with the documented findings, assessment, and plan of care. I have personally seen and examined the patient, reviewed the TAR POT MAN /PAs history, exam and MDM and agree with the assessment and plan as written. Based on total visit time, I have performed more than 50% of the visit. As above: Patient had a small emesis last night. This morning he has had 5 loose stools. He feels less bloated. No nausea currently. Patient states he has not been able to sleep well. Says he definitely feels better than yesterday. Begin clear liquids. Continue antibiotics. Keep STEPHEN drain in place given the more than expected serosanguineous output. Continue ambulation. Await CMP. Objective - Vital Signs Vital signs: Vital Signs Temp 98.3 F 08/07/22 06:40 Pulse 75 08/07/22 08:48 Resp 16 08/07/22 08:48 BP 103/65 08/07/22 06:40 Pulse Ox 93 L 08/07/22 06:40 FiO2 Intake & Output 08/06/22 08/07/22 08/07/22 18:59 06:59 18:59 Output Total 1655 130 Balance -1655 -130 Output: Drainage 205 130 Abdomen 205 130 Urine 250 Emesis 1200 Other: Voiding Method Urinal Urinal Urinal # Voids 1 3 # Bowel Movements 1 - Labs CBC & Chem 7: 08/07/22 05:57 08/06/22 05:16 Labs: Abnormal Lab Results - Last 24 Hours (Table) 08/07/22 Range/Units 05:57 RBC 3.60 L (4.40-5.60) X 10*6/uL Hgb 11.0 L (13.0-17.0) g/dL Hct 32.6 L (39.6-50.0) % Lymphocytes # 0.88 L (0.90-5.00) X 10*3/uL Microbiology - Last 24 Hours (Table) 08/02/22 16:29 Anaerobic Culture - Final Aspirate Anaerobic Gm Negative Bacilli
--- NOTE | 2022-08-07 11:34 | P.PN ---
Subjective Progress Note Date: 08/07/22 Hospital course: Patient is a very pleasant 47-year-old male with a past medical history of hyp erlipidemia, GERD, and depression. He presented to the emergency department for chief complaint of abdominal pain. Patient reports that he was initially evaluated at another [facility] facility on [address] and underwent a computed tomography scan. Patient reports that he received a call from his primary care provider to go to the emergency department for evaluation as CT was concerning for acute appendicitis. Patient was admitted under Gen. surgery team and we are consulted for medical management throughout remainder of hospitalization. Patient states that he still feels not she is. However he states that his symptoms are improving. He had 2 bowel movements last night. Physical exam: General examination - Alert and Oriented 3 in NAD Heart - + S1S2 no murmurs Lungs - Clear to auscultation Abdomen soft mild diffuse tenderness to palpate, bandages on surgical sites are intact and dry, ND +ve BS Extremities - No edema SHRIMP HEADER - Moving all 4 extremities spontaneously Psych - Calm and cooperative Assessment Vital signs reviewed and are stable Data reviewed: Patient's CBC was reviewed and was unremarkable. Patient's CMP is still pending Cultures from surgery grew E. coli and diphtheroid species that was sensitive to Zosyn Subacute appendicitis with abscess formation Postop ileus; resolving Mild transaminitis Status post ileocecectomy on 08/02/2022 Postoperative blood loss anemia which is expected; hemoglobin stable Hypokalemia; resolved Anxiety and depression GERD Plan Avoid opioids I encouraged patient to ambulate in the hallways Continue with aggressive IV fluids Monitor CMP Resume IV Zosyn -> ID managing antibiotics. Patient also on IV Flagyl as per primary service DVT prophylaxis: Subcu heparin Anticipated discharge: Depending on clinical course Anticipated discharge place: Home Objective - Vital Signs Vital signs: Vital Signs Temp 98.3 F 08/07/22 06:40 Pulse 75 08/07/22 08:48 Resp 16 08/07/22 08:48 BP 103/65 08/07/22 06:40 Pulse Ox 93 L 08/07/22 06:40 FiO2 Intake & Output 08/06/22 08/07/22 08/07/22 18:59 06:59 18:59 Output Total 1655 130 Balance -1655 -130 Output: Drainage 205 130 Abdomen 205 130 Urine 250 Emesis 1200 Other: Voiding Method Urinal Urinal Urinal # Voids 1 3 # Bowel Movements 1 - Labs CBC & Chem 7: 08/07/22 05:57 08/06/22 05:16 Labs: Abnormal Lab Results - Last 24 Hours (Table) 08/07/22 Range/Units 05:57 RBC 3.60 L (4.40-5.60) X 10*6/uL Hgb 11.0 L (13.0-17.0) g/dL Hct 32.6 L (39.6-50.0) % Lymphocytes # 0.88 L (0.90-5.00) X 10*3/uL Microbiology - Last 24 Hours (Table) 08/02/22 16:29 Anaerobic Culture - Final Aspirate Anaerobic Gm Negative Bacilli
[2022-08-07 11:39] LABS: Albumin 2.9 g/dL (3.8-4.9); Albumin/Globulin Ratio 1.53 (1.60-3.17); Anion Gap 10.8 mmol/L (10.00-18.00); BUN/Creat Ratio 18.38 Ratio (12.00-20.00); Blood Urea Nitrogen 14.7 mg/dL (9.0-27.0); Calcium 8.4 mg/dL (8.7-10.3); Carbon Dioxide 25.2 mmol/L (20.0-27.5); Globulin 1.9 g/dL (1.6-3.3); Non-African American GFR(CKD) 107.9 (60.0-200.0); Potassium 3.4 mmol/L (3.5-5.5); Total Bilirubin 0.3 mg/dL (0.30-1.20); Total Protein 4.8 g/dL (6.2-8.2)
--- NOTE | 2022-08-07 14:56 | CDI ---
Documentation Clarification Form Date: 08/07/2022 2:12:06 PM From: Delfina Mejia RN CCDS Admit Date: 08/05/2022 8:15:00 AM Patient Name: Michael Hair Visit Number: [id number] Discharge Date: ATTENTION: The Clinical Documentation Specialists (CDI) and [facility] Coding Staff appreciate your assistance in clarifying documentation. Please respond to the clarification below the line at the bottom and electronically sign. The CDI & [facility] Coding staff will review the response and follow-up if needed. Please note: Queries are made part of the Legal Health Record. If you have any questions, please contact the author of this message via ITS. Dr. Eliazar Jackson Postop nausea and vomiting and postop ileus are documented in the progress notes starting on 08/06/2022 and patient had post ileocecectomy on 08/02/2022. Additional clarification is requested regarding the relationship, if any, that exists between the diagnosis and the procedure. Patients Admitting Diagnosis: Acute appendicitis. Post-Operative Diagnosis: Subacute appendicitis with abscess formation Procedure performed: Diagnostic laparoscopy, laparoscopic lysis of adhesions, and conversion to laparoscopy with ileocecectomy. History/Risk Factor: No reported history Clinical Indicators: 47-year-old male present with complaints of abdominal pain, abnormal CT scan. 08/05 Attending Progress notes: patient complains of abdominal bloating with belching and nausea. Denies flatus or bowel movement. 08/06 VS: 127/86 73 18 98.2 95 % RA 08/06 Labs: WBC 8.09 HGB 13.8, AST 92, ALT 77 08/06 XR abdomen: Numerous dilated small bowel loops with air-fluid levels. Loops are distended up to 4.9 cm. Findings are nonspecific and could reflect postoperative ileus or small bowel obstruction. Treatment: 1L .9 NSIV fluid bolus NPO, Monitor I/O Protonix 40 MG IV Daily, Zofran 4 MG IVP Q 6 HRS PRN Consults: What relationship, if any, exists between the diagnosis postop ileus and the procedure? [ ] Postop ileus is a complication of surgical procedure [ ] Postop ileus is an expected outcome of the surgical procedure [ X ] Postop ileus is related to patients co-morbid condition(s) of ruptured appendicitis & not a complication of the procedure [ ] Postop ileus has been ruled out [ ] Other please specify ____ [ ] Unable to determine (Template Last Revised: May 2020) MTDD
[2022-08-07] MEDS ORDERED: POTASSIUM CHLORIDE ER 20 MEQ TAB.ER PO STA (17:47)
[2022-08-07 20:54] VITALS: RESP 18
[2022-08-08] MEDS: SODIUM CHLORIDE 0.9% 1,000 ML IV SCH ×3 (02:17→20:14)
[2022-08-08] MEDS: PIPERACILLIN-TAZOBACTAM 3.375 GM in SODIUM CHLORIDE 0.9% 100 ML IVPB SCH ×3 (03:31→20:36)
[2022-08-08] MEDS: ACETAMINOPHEN IV (For NPO) 1,000 MG in EMPTY BAG 1 BAG IVPB SCH ×4 (05:37→23:27)
[2022-08-08] MEDS: KETOROLAC 15 MG/ML 1 ML VIAL IVP SCH ×4 (05:37→23:27)
[2022-08-08] MEDS: HEPARIN SODIUM,PORCINE/PF 5,000 UNIT/0.5 ML SYRINGE SQ SCH ×2 (08:10→16:55)
[2022-08-08] MEDS: PANTOPRAZOLE 40 MG/10 ML VIAL IV SCH (08:10)
[2022-08-08] MEDS: metroNIDAZOLE-NS PMX 500 MG in SALINE 1 100ML.BAG IVPB SCH ×2 (08:11→16:55)
[2022-08-08] MEDS: SCOPOLAMINE 1 MG/72 HR PATCH TRANSDERM SCH (08:11)
--- NOTE | 2022-08-08 09:11 | P.PN ---
Subjective Progress Note Date: 08/06/22 Principal diagnosis: Perforated appendicitis and intra-abdominal abscess Patient is a 47-year-old male with a past medical history significant for hyperlipidemia reflux presenting to the hospital for evaluation of right lower quadrant abdominal pain , patient had been diagnosed with a perforated appendicitis with an abscess in this patient was status post laparotomy and ileocecectomy. On today's evaluation that is 08/06/2022, the patient continues to be afebrile, the patient abdominal pain is better controlled today , still some nausea but no vomiting no chest pain shortness of breath or cough did not have a bowel movement Objective - Vital Signs Vital signs: Vital Signs Temp 98.7 F 08/06/22 06:40 Pulse 93 08/06/22 06:40 Resp 18 08/06/22 06:40 BP 112/72 08/06/22 06:40 Pulse Ox 93 L 08/06/22 06:40 FiO2 Intake & Output 08/05/22 08/06/22 08/06/22 18:59 06:59 18:59 Intake Total 218 Output Total 4668 687 3880 Balance -882 -565 -1200 Intake: Oral 218 Output: Drainage 450 445 Abdomen 450 445 Urine 650 120 Uretheral (Aggarwal) 650 Emesis 1200 Other: Voiding Method Indwelling Catheter Urinal # Voids 1 - Exam GENERAL DESCRIPTION: Middle-age male lying in bed in no distress RESPIRATORY SYSTEM: Unlabored breathing , decreased breath sounds at bases HEART: S1 S2 regular rate and rhythm , ABDOMEN: Soft , mild tenderness - Labs CBC & Chem 7: 08/07/22 05:57 08/07/22 05:57 Labs: Abnormal Lab Results - Last 24 Hours (Table) 08/05/22 08/06/22 Range/Units 14:12 05:16 RBC 4.17 L (4.30-5.90) m/uL Hgb 12.6 L (13.0-17.5) gm/dL Hct 37.6 L (39.0-53.0) % Anion Gap 18.80 H (10.00-18.00) mmol/L Glucose 126 H (70-110) mg/dL AST 92 H (14-35) U/L ALT 77 H (10-49) U/L Total Protein 5.7 L (6.2-8.2) g/dL Albumin 3.5 L (3.8-4.9) g/dL Albumin/Globulin Ratio 1.59 L (1.60-3.17) g/dL Microbiology - Last 24 Hours (Table) 08/02/22 16:29 Gram Stain - Final Aspirate Body Fluid Culture - Final Escherichia coli Diphtheroid species Assessment and Plan (1) Intra-abdominal abscess Current Visit: Yes Status: Acute Code(s): K65.1 - PERITONEAL ABSCESS SNOMED Code(s): 63342324 (2) Acute appendicitis Current Visit: Yes Status: Acute Code(s): K35.80 - UNSPECIFIED ACUTE APPENDICITIS SNOMED Code(s): 86212701 Plan: 1patient present to hospital abdominal pain noticed to have a appendicitis with abscess formation status post laparotomy and ileocecectomy, abdominal cultures did grew E. coli which is intermediate sensitivity to Unasyn and diphtheroid species we will continue the patient on Zosyn and monitor his clinical course closely Time with Patient: Less than 30
--- NOTE | 2022-08-08 09:13 | P.PN ---
Subjective Progress Note Date: 08/07/22 Principal diagnosis: Perforated appendicitis and intra-abdominal abscess Patient is a 47-year-old male with a past medical history significant for hyperlipidemia reflux presenting to the hospital for evaluation of right lower quadrant abdominal pain , patient had been diagnosed with a perforated appendicitis with an abscess in this patient was status post laparotomy and ileocecectomy. On today's evaluation that is 08/07/2022, the patient is afebrile, the patient abdominal pain has decreased in intensity, pt did have some nausea but no vomiting no chest pain shortness of breath or cough , the pt did have few bowel movement Objective - Vital Signs Vital signs: Vital Signs Temp 98.3 F 08/07/22 06:40 Pulse 75 08/07/22 08:48 Resp 16 08/07/22 08:48 BP 103/65 08/07/22 06:40 Pulse Ox 93 L 08/07/22 06:40 FiO2 Intake & Output 08/06/22 08/07/22 08/07/22 18:59 06:59 18:59 Output Total 1655 130 Balance -1655 -130 Output: Drainage 205 130 Abdomen 205 130 Urine 250 Emesis 1200 Other: Voiding Method Urinal Urinal Urinal # Voids 1 3 # Bowel Movements 1 - Exam GENERAL DESCRIPTION: Middle-age male lying in bed in no distress RESPIRATORY SYSTEM: Unlabored breathing , decreased breath sounds at bases HEART: S1 S2 regular rate and rhythm , ABDOMEN: Soft , mild tenderness - Labs CBC & Chem 7: 08/07/22 05:57 08/07/22 05:57 Labs: Abnormal Lab Results - Last 24 Hours (Table) 08/07/22 Range/Units 05:57 RBC 3.60 L (4.40-5.60) X 10*6/uL Hgb 11.0 L (13.0-17.0) g/dL Hct 32.6 L (39.6-50.0) % Lymphocytes # 0.88 L (0.90-5.00) X 10*3/uL Microbiology - Last 24 Hours (Table) 08/02/22 16:29 Anaerobic Culture - Final Aspirate Anaerobic Gm Negative Bacilli Assessment and Plan (1) Intra-abdominal abscess Current Visit: Yes Status: Acute Code(s): K65.1 - PERITONEAL ABSCESS SNOMED Code(s): 48731491 (2) Acute appendicitis Current Visit: Yes Status: Acute Code(s): K35.80 - UNSPECIFIED ACUTE APPENDICITIS SNOMED Code(s): 25584236 Plan: 1patient present to hospital abdominal pain noticed to have a appendicitis with abscess formation status post laparotomy and ileocecectomy, abdominal cultures did grew E. coli which is intermediate sensitivity to Unasyn and diphtheroid species , pt is slowly clinically improving , we will continue the patient on Z osyn and hopefully transition to oral antibiotics on discharge , discussed with surgeon Time with Patient: Less than 30
[2022-08-08 09:44] LABS: ALT 78 U/L (4-49); AST 83 U/L (17-59); African American GFR (CKD) >90 (>60 ml/min/1.73 sqM); Albumin 2.5 g/dL (3.5-5.0); Albumin/Globulin Ratio 1.2; Alkaline Phosphatase 90 U/L (38-126); Anion Gap 11 mmol/L; Blood Urea Nitrogen 11 mg/dL (9-20); Calcium 7.7 mg/dL (8.4-10.2); Carbon Dioxide 22 mmol/L (22-30); Chloride 106 mmol/L (98-107); Globulin 2.1 g/dL; Glucose 80 mg/dL (74-99); Non-African American GFR(CKD) >90 (>60 ml/min/1.73 sqM); Sodium 139 mmol/L (137-145); Total Bilirubin 0.5 mg/dL (0.2-1.3); Total Protein 4.6 g/dL (6.3-8.2)
[2022-08-08] MEDS ORDERED: POTASSIUM CHLORIDE ER 20 MEQ TAB.ER PO STA (10:14)
[2022-08-08 11:03] LABS: HCT 31.1 % (39.6-50.0); HGB 10.3 g/dL (13.0-17.0); MCH 30.5 pg (27.0-32.0); MCHC 33.1 g/dL (32.0-37.0); Mean Platelet Volume 9.9 fL (9.5-12.2); NRBC Per 100 WBC 0 /100 WBCS (0.0-0.0); Platelet Count 355 X 10*3/uL (140-440); RBC 3.38 X 10*6/uL (4.40-5.60); RDW 13.2 % (11.5-14.5); WBC 6.36 X 10*3/uL (4.50-10.00)
[2022-08-08] MEDS: buPROPion XL 150 MG TAB.ER.24H PO SCH (11:05)
--- NOTE | 2022-08-08 12:04 | P.PN ---
Subjective Progress Note Date: 08/08/22 CHIEF COMPLAINT: Subacute appendicitis with abscess formation HISTORY OF PRESENT ILLNESS: Patient is postop day #6 status post Diagnostic laparoscopy, laparoscopic lysis of adhesions, conversion to laparotomy with ileocecectomy. Patient reports that he is feeling better today. He denies any vomiting yesterday or today. The nausea has resolved. He is having diarrhea. Reports no blood in his stools. 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 He did have a low-grade temp of 100.2 early this morning. He is tolerating the clear liquids. He has been up ambulating. Patient is asking when he will be able to go home. STEPHEN drain with 20 mL serosanguineous output through the night. WBC is 6.36 Hgb is 10.3 platelets 355 sodium is 139 potassium 3.0 creatinine 0.71 total bili 0.5 AST 83 ALT 78. Culture E. coli and diphtheroid species. Anaerobic culture gram-negative bacilli. PHYSICAL EXAM: VITAL SIGNS: Reviewed. GENERAL: Well-developed in no acute distress. HEENT: No sclera icterus. Extraocular movements grossly intact. Moist buccal mucosa. Head is atraumatic, normocephalic. ABDOMEN: Soft. Nondistended. Incision site clean dry and intact. STEPHEN drain serosanguinous output. NEUROLOGIC: Alert and oriented. Cranial nerves II through XII grossly intact. ASSESSMENT: 1. Subacute appendicitis with abscess formation status post Diagnostic laparoscopy, laparoscopic lysis of adhesions, conversion to laparotomy with ileocecectomy 2. Postoperative ileus 3. Mildly elevated LFTs. Possibly due to medications. 4. Low-grade temp possibly due to atelectasis 5. Hypokalemia. Potassium being replaced PLAN: -Advance diet to full liquids -Decrease IV fluids to 75 ml/hr -Antibiotics per infectious disease -Encouraged patient to ambulate and use incentive spirometer -Continue pain management -Continue antiemetics -Continue to monitor STEPHEN drain output -GI prophylaxis Protonix and DVT prophylaxis subcu heparin Physician Accountant Assistant note has been reviewed by physician. Signing provider agrees with the documented findings, assessment, and plan of care. I have personally seen and examined the patient, reviewed the NUCLEAR WEAPONS SPECIALIST /PAs history, exam and MDM and agree with the assessment and plan as written. Based on total visit time, I have performed more than 50% of the visit. As above: Patient doing better today. He is having more normal bowel activity. Denies nausea or vomiting. Tolerating liquid diet. He is asking to go home today. T-max 100.2. White blood cell count normal. Will advance to regular diet tomorrow morning. Plan discharge on oral antibiotics tomorrow with drain in place if patient does well overnight with no further fevers. Objective - Vital Signs Vital signs: Vital Signs Temp 98.9 F 08/08/22 07:11 Pulse 85 08/08/22 07:11 Resp 18 08/08/22 07:11 BP 119/74 08/08/22 07:11 Pulse Ox 97 08/08/22 07:11 FiO2 Intake & Output 08/07/22 08/08/22 08/08/22 18:59 06:59 18:59 Output Total 60 Balance -60 Weight 83.915 kg Output: Drainage 60 Abdomen 60 Other: Voiding Method Urinal Urinal # Voids 2 2 - Labs CBC & Chem 7: 08/08/22 06:34 08/08/22 06:34 Labs: Abnormal Lab Results - Last 24 Hours (Table) 08/08/22 08/08/22 Range/Units 06:34 06:34 RBC 3.38 L (4.40-5.60) X 10*6/uL Hgb 10.3 L (13.0-17.0) g/dL Hct 31.1 L (39.6-50.0) % Potassium 3.0 L (3.5-5.1) mmol/L Calcium 7.7 L (8.4-10.2) mg/dL AST 83 H (17-59) U/L ALT 78 H (4-49) U/L Total Protein 4.6 L (6.3-8.2) g/dL Albumin 2.5 L (3.5-5.0) g/dL
--- NOTE | 2022-08-08 14:50 | P.PN ---
Subjective Progress Note Date: 08/08/22 Principal diagnosis: Perforated appendicitis and intra-abdominal abscess Patient is a 47-year-old male with a past medical history significant for hyperlipidemia reflux presenting to the hospital for evaluation of right lower quadrant abdominal pain , patient had been diagnosed with a perforated appendicitis with an abscess in this patient was status post laparotomy and ileocecectomy. On today's evaluation that is 08/08/2022, the patient did have a low-grade fever 100.2 after midnight for the patient is afebrile since then, the patient abdominal pain has decreased in intensity, pt did have some nausea but no vomiting and has been tolerating his diet no chest pain shortness of breath or cough , the pt did have few bowel movement Objective - Vital Signs Vital signs: Vital Signs Temp 98.9 F 08/08/22 07:11 Pulse 85 08/08/22 07:11 Resp 18 08/08/22 07:11 BP 119/74 08/08/22 07:11 Pulse Ox 97 08/08/22 07:11 FiO2 Intake & Output 08/07/22 08/08/22 08/08/22 18:59 06:59 18:59 Output Total 60 Balance -60 Weight 83.915 kg Output: Drainage 60 Abdomen 60 Other: Voiding Method Urinal Urinal # Voids 2 2 - Exam GENERAL DESCRIPTION: Middle-age male lying in bed in no distress RESPIRATORY SYSTEM: Unlabored breathing , decreased breath sounds at bases HEART: S1 S2 regular rate and rhythm , ABDOMEN: Soft , mild tenderness - Labs CBC & Chem 7: 08/08/22 06:34 08/08/22 06:34 Labs: Abnormal Lab Results - Last 24 Hours (Table) 08/07/22 08/08/22 08/08/22 Range/Units 05:57 06:34 06:34 RBC 3.38 L (4.40-5.60) X 10*6/uL Hgb 10.3 L (13.0-17.0) g/dL Hct 31.1 L (39.6-50.0) % Potassium 3.4 L 3.0 L (3.5-5.5) mmol/L Calcium 8.4 L 7.7 L (8.7-10.3) mg/dL AST 70 H 83 H (14-35) U/L ALT 71 H 78 H (10-49) U/L Total Protein 4.8 L 4.6 L (6.2-8.2) g/dL Albumin 2.9 L 2.5 L (3.8-4.9) g/dL Albumin/Globulin Ratio 1.53 L (1.60-3.17) g/dL Assessment and Plan (1) Intra-abdominal abscess Current Visit: Yes Status: Acute Code(s): K65.1 - PERITONEAL ABSCESS SNOMED Code(s): 48559298 (2) Acute appendicitis Current Visit: Yes Status: Acute Code(s): K35.80 - UNSPECIFIED ACUTE APPENDICITIS SNOMED Code(s): 53593370 Plan: 1patient present to hospital abdominal pain noticed to have a appendicitis with abscess formation status post laparotomy and ileocecectomy, abdominal cultures did grew E. coli which is intermediate sensitivity to Unasyn and diphtheroid sp ecies , pt is slowly clinically improving , we will continue the patient on Zosyn and hopefully transition to oral oral Cipro and Flagyl on discharge if the patient continued to improve, he did have multiple questions and concerns were answered Time with Patient: Less than 30
--- NOTE | 2022-08-08 19:37 | P.PN ---
Subjective Progress Note Date: 08/08/22 (delayed charting seen at 1110) Patient is a 47-year-old male dyslipidemia, GERD, and depression who presented to the emergency department with complaints of abdominal pain. He had an out patient computed tomography scan concerning for acute appendicitis. He was admitted by general surgery and underwent laparoscopy with lysis of adhesion and then laparotomy with ileocecectomy secondary to subacute appendicitis with associated abscess Patient seen and examined at bedside. He states that his abdominal pain is getting better and he feels as though the Toradol and Tylenol were making his stomach upset. He had diffuse diarrhea last night. He has been tolerating his clear liquid diet and his nausea is much improved. Vital signs reviewed General: nontoxic, no distress, appears at stated age Cardiovascular: S1S2 reg, no murmur, positive posterior tibial pulse bilateral, Lungs: CTA bilateral, no rhonchi, no rales , no accessory muscle use Abdominal: soft, nontender to palpation, no guarding, no appreciable organomegaly Ext: no gross muscle atrophy, no edema, no contractures Neuro: CN II-XI grossly intact, no focal neuro deficits Psych: Alert, oriented, appropriate affect Assessment: Subacute appendicitis with abscess formation status post ileocecectomy Postop ileus; resolving Mild transaminitis, suspect related to Zosyn Postoperative blood loss anemia which is expected; hemoglobin stable Hypokalemia Anxiety and depression GERD Imaging: -None new Data Review: Reviewed vitals T-max was 24 hours is 100.2, pulse 99, respirations 18, blood pressure 131/80 Laboratory analysis reviewed hemoglobin 10.3, potassium 3, calcium 7.7, AST 83, ALT 78 Plan: - Potassium 40 mEq 1 now - Surgery reviewed and patient was advanced to full liquid diet, his IV fluids were decreased to 75 mL/h. He continues to have some STEPHEN drain output. Likely home tomorrow if no recurrent fevers. -Infectious disease note reviewed. Nominal cultures grew E. coli which is resistent to Unasyn and diphtheroid species patient will continue on Zosyn and tomorrow can likely transition to Cipro and Flagyl. -Patient is okay to resume his Wellbutrin 150 mg daily. -Protonix 40 mg IV daily Continue with ambulation -Repeat CMP and magnesium in a.m. This dictation was prepared using [employer] voice recognition software. o ugh every attempt is made to correct errors during during dictation some may still exist. Objective - Vital Signs Vital signs: Vital Signs Temp 97.5 F L 08/08/22 13:23 Pulse 94 08/08/22 13:23 Resp 18 08/08/22 13:23 BP 136/92 08/08/22 13:23 Pulse Ox 97 08/08/22 13:23 FiO2 Intake & Output 08/08/22 08/08/22 08/09/22 06:59 18:59 06:59 Output Total 60 50 Balance -60 -50 Weight 83.915 kg Output: Drainage 60 50 Abdomen 60 50 Other: Voiding Method Urinal Urinal # Voids 2 2 - Labs CBC & Chem 7: 08/08/22 06:34 08/08/22 06:34 Labs: Abnormal Lab Results - Last 24 Hours (Table) 08/08/22 08/08/22 Range/Units 06:34 06:34 RBC 3.38 L (4.40-5.60) X 10*6/uL Hgb 10.3 L (13.0-17.0) g/dL Hct 31.1 L (39.6-50.0) % Potassium 3.0 L (3.5-5.1) mmol/L Calcium 7.7 L (8.4-10.2) mg/dL AST 83 H (17-59) U/L ALT 78 H (4-49) U/L Total Protein 4.6 L (6.3-8.2) g/dL Albumin 2.5 L (3.5-5.0) g/dL
[2022-08-09] MEDS: metroNIDAZOLE-NS PMX 500 MG in SALINE 1 100ML.BAG IVPB SCH ×2 (00:52→09:14)
[2022-08-09] MEDS: HEPARIN SODIUM,PORCINE/PF 5,000 UNIT/0.5 ML SYRINGE SQ SCH ×2 (00:52→09:14)
[2022-08-09] MEDS: ACETAMINOPHEN IV (For NPO) 1,000 MG in EMPTY BAG 1 BAG IVPB SCH ×2 (03:26→11:26)
[2022-08-09] MEDS: KETOROLAC 15 MG/ML 1 ML VIAL IVP SCH ×2 (03:27→11:26)
[2022-08-09] MEDS: PIPERACILLIN-TAZOBACTAM 3.375 GM in SODIUM CHLORIDE 0.9% 100 ML IVPB SCH ×2 (03:28→11:26)
[2022-08-09 08:15] VITALS: BP 117/80; PULSE 105; TEMP 98.1
[2022-08-09] MEDS: PANTOPRAZOLE 40 MG/10 ML VIAL IV SCH (09:14)
[2022-08-09] MEDS: buPROPion XL 150 MG TAB.ER.24H PO SCH (09:15)
[2022-08-09 10:23] LABS: ALT 177 U/L (4-49); AST 230 U/L (17-59); African American GFR (CKD) >90 (>60 ml/min/1.73 sqM); Albumin 2.8 g/dL (3.5-5.0); Albumin/Globulin Ratio 1.3; Alkaline Phosphatase 124 U/L (38-126); Anion Gap 9 mmol/L; Blood Urea Nitrogen 5 mg/dL (9-20); Calcium 8.1 mg/dL (8.4-10.2); Carbon Dioxide 28 mmol/L (22-30); Chloride 97 mmol/L (98-107); Globulin 2.2 g/dL; Glucose 103 mg/dL (74-99); Magnesium 1.6 mg/dL (1.6-2.3); Non-African American GFR(CKD) >90 (>60 ml/min/1.73 sqM); Potassium 3.1 mmol/L (3.5-5.1); Sodium 134 mmol/L (137-145); Total Bilirubin 0.7 mg/dL (0.2-1.3)
[2022-08-09 11:25] LABS: Glucose,Whole Blood 103 mg/dL (70-110)
[2022-08-09] MEDS: SODIUM CHLORIDE 0.9% 1,000 ML IV SCH (11:26)
[2022-08-09] MEDS ORDERED: POTASSIUM CHLORIDE ER 20 MEQ TAB.ER PO STA ×2 (11:34→12:12)
--- NOTE | 2022-08-09 11:53 | P.DS ---
Providers Date of admission: 08/05/22 08:15 Expected date of discharge: 08/09/22 Attending physician: Eliazar Jackson Consults: 08/02/22 18:12 Consult Physician Routine Consulting Provider: Yeni Rojas Consult Reason/Comments: Medical management Do you want consulting provider notified?: Yes Consult Physician Routine Consulting Provider: Tuyet Yadav Consult Reason/Comments: Ruptured appendicitis with abscess Do you want consulting provider notified?: Yes Primary care physician: Carlton Rodrigues Hospital Course: Discharge diagnoses 1. Subacute appendicitis with abscess formation status post Diagnostic laparoscopy, laparoscopic lysis of adhesions, conversion to laparotomy with ileocecectomy 2. Postoperative ileus resolved 3. Elevated LFTs. Possibly due to medications. History of cholecystectomy 4. Hypokalemia. Patient received potassium supplement prior to discharge Hospital course This is a 47-year-old male who presented with right lower quadrant abdominal pain that radiated to the back and lower pelvic region. Patient's computed tomography scan had shown a 1.5 cm dilated retrocecal appendix with signifi O cant inflammatory changes was noted. There was no abscess or free air seen. Patient is status post Diagnostic laparoscopy, laparoscopic lysis of adhesions, conversion to laparotomy with ileocecectomy. Patient developed a postoperative ileus. This was managed with medications. He is now having us bowel movements. Abdominal pain is controlled. He is tolerating diet. He is afebrile. He has been up and ambulating. He will be discharged home with antibiotics per infectious disease recommendations. Incision sites clean dry and intact. Potassium is being replaced prior to discharge. Patient does have elevated LFTs likely medication induced. Repeat CMP to follow up on LFTs and potassium on Friday outpatient. Patient is stable for discharge. Please refer to chart for further details. Physician Parks And Recreation Worker note has been reviewed by physician. Signing provider agrees with the documented findings, assessment, and plan of care. I have personally seen and examined the patient, reviewed the TRANSPORTATION TECHNICIAN /PAs history, exam and MDM and agree with the assessment and plan as written. Based on total visit time, I have performed more than 50% of the visit. As above: Patient doing well today. Some loose stools. Tolerating diet. Patient is very anxious to go home. He is afebrile. Liver enzymes have increased slightly. Most likely medication related. May discharge on oral antibiotics. We'll repeat CMP is outpatient. Pathology reviewed with patient. We'll discuss further in the outpatient setting. Patient Condition at Discharge: Stable Plan - Discharge Summary Discharge Rx Participant: No New Discharge Prescriptions: New Ciprofloxacin HCl [Cipro] 500 mg PO Q12HR 14 Days #28 tab metroNIDAZOLE [Flagyl] 500 mg PO TID 14 Days #42 tab Loperamide [Imodium] 2 mg PO BID PRN #10 capsule PRN Reason: Diarrhea Ibuprofen [Motrin] 600 mg PO Q8HR PRN #30 tab PRN Reason: Pain Continue Eszopiclone [Lunesta] 3 mg PO HS Cyanocobalamin (Vitamin B-12) [Vitamin B-12] 1,000 mcg PO DAILY Pantoprazole Sodium [Protonix] 40 mg PO DAILY buPROPion XL [Wellbutrin XL] 150 mg PO DAILY Discharge Medication List Cyanocobalamin (Vitamin B-12) [Vitamin B-12] 1,000 mcg PO DAILY 08/01/22 [History] Eszopiclone [Lunesta] 3 mg PO HS 08/01/22 [History] Pantoprazole Sodium [Protonix] 40 mg PO DAILY 08/01/22 [History] buPROPion XL [Wellbutrin XL] 150 mg PO DAILY 08/01/22 [History] Ciprofloxacin HCl [Cipro] 500 mg PO Q12HR 14 Days #28 tab 08/09/22 [Rx] Ibuprofen [Motrin] 600 mg PO Q8HR PRN #30 tab 08/09/22 [Rx] Loperamide [Imodium] 2 mg PO BID PRN #10 capsule 08/09/22 [Rx] metroNIDAZOLE [Flagyl] 500 mg PO TID 14 Days #42 tab 08/09/22 [Rx] Follow up Appointment(s)/Referral(s): Eliazar Jackson MD [Medical Doctor] - 08/14/22 1:50 pm Carlton Rodrigues MD [Primary Care Provider] - 08/22/22 11:30 am Tuyet Yadav MD [STAFF PHYSICIAN] - 08/20/22 2:45 pm Ambulatory/Diagnostic Orders: Comprehensive Metabolic Panel [LAB.AMB] Time Frame: 08/05/22, Location: None Selected Patient Instructions/Handouts: Mike-Burch Drain Care (DC), Open Appendectomy (DC), Colectomy (DC) Activity/Diet/Wound Care/Special Instructions: No lifting over 10 pounds You may shower. No soaking or tub baths for 2 weeks Very light activity until you are reevaluated at your follow up appointment with your surgeon Keep a log of STEPHEN drain output and bring with you to your follow-up appointment Milk/strip drains 2-3 times a day Discharge/Stand Alone Forms: Outpatient Counseling Discharge Disposition: HOME SELF-CARE
--- NOTE | 2022-08-09 14:54 | P.PN ---
Subjective Progress Note Date: 08/09/22 Principal diagnosis: Perforated appendicitis and intra-abdominal abscess Patient is a 47-year-old male with a past medical history significant for hyperlipidemia reflux presenting to the hospital for evaluation of right lower quadrant abdominal pain , patient had been diagnosed with a perforated appendicitis with an abscess in this patient was status post laparotomy and ileocecectomy. On today's evaluation that is 08/09/2022, the patient is afebrile today , the patient abdominal pain has decreased in intensity, pt denies nausea no vomiting and has been tolerating his diet, no chest pain shortness of breath or cough , the patient is feeling better and wants to go home Objective - Vital Signs Vital signs: Vital Signs Temp 98.1 F 08/09/22 06:53 Pulse 105 H 08/09/22 06:53 Resp 18 08/09/22 06:53 BP 117/80 08/09/22 06:53 Pulse Ox 94 L 08/09/22 09:31 FiO2 21 08/09/22 09:31 Intake & Output 08/08/22 08/09/22 08/09/22 18:59 06:59 18:59 Intake Total 690 Output Total 50 50 10 Balance -50 640 -10 Weight 83.915 kg 83.915 kg Intake: Oral 690 Output: Drainage 50 50 10 Abdomen 50 50 10 Other: Voiding Method Urinal Toilet # Voids 2 2 - Exam GENERAL DESCRIPTION: Middle-age male lying in bed in no distress RESPIRATORY SYSTEM: Unlabored breathing , decreased breath sounds at bases HEART: S1 S2 regular rate and rhythm , ABDOMEN: Soft , mild tenderness - Labs CBC & Chem 7: 08/08/22 06:34 08/09/22 09:21 Labs: Abnormal Lab Results - Last 24 Hours (Table) 08/09/22 Range/Units 09:21 Sodium 134 L (137-145) mmol/L Potassium 3.1 L (3.5-5.1) mmol/L Chloride 97 L (98-107) mmol/L BUN 5 L (9-20) mg/dL Creatinine 0.60 L (0.66-1.25) mg/dL Glucose 103 H (74-99) mg/dL Calcium 8.1 L (8.4-10.2) mg/dL AST 230 H (17-59) U/L ALT 177 H (4-49) U/L Total Protein 5.0 L (6.3-8.2) g/dL Albumin 2.8 L (3.5-5.0) g/dL Assessment and Plan (1) Intra-abdominal abscess Status: Acute Code(s): K65.1 - PERITONEAL ABSCESS SNOMED Code(s): 47222177 (2) Acute appendicitis Status: Acute Code(s): K35.80 - UNSPECIFIED ACUTE APPENDICITIS SNOMED Code(s): 84505463 Plan: 1patient present to hospital abdominal pain noticed to have a appendicitis with abscess formation status post laparotomy and ileocecectomy, abdominal cultures did grew E. coli which is intermediate sensitivity to Unasyn and diphtheroid species , 2-patient has shown clinical improvement , the patient is afebrile, white count is normal we will finish therapy with oral Cipro and Flagyl 2 weeks and close outpatient follow-up Time with Patient: Less than 30
== END 2022-08-09 13:48 | disposition home or self-care (01) | DRG 330 ==
LOC: EC 13:45 → 6NMEDSUR 16:50 → 4SSUR 08-02 20:45 → OBSVTOIN 08-05 08:15
PROVIDERS: ADMIT Surgery; ATTEND Surgery
PROC: 0DTJ0ZZ Resection of Appendix, Open Approach (ICD-10-PCS; 2022-08-02)
PROC: 0WJG4ZZ Inspection of Peritoneal Cavity, Percutaneous Endoscopic Approach (ICD-10-PCS; 2022-08-02)
PROC: 0DNW0ZZ Release Peritoneum, Open Approach (ICD-10-PCS; 2022-08-02)
PROC: 0DTH0ZZ Resection of Cecum, Open Approach (ICD-10-PCS; principal; 2022-08-02 11:45)
PROC: 3E0R3BZ Introduction of Anesthetic Agent into Spinal Canal, Percutaneous Approach (ICD-10-PCS; 2022-08-03)
PROC: 00HU33Z Insertion of Infusion Device into Spinal Canal, Percutaneous Approach (ICD-10-PCS; 2022-08-03)
DX: K35.33 Acute appendicitis with perforation, localized peritonitis, and gangrene, with abscess (principal); D62 Acute posthemorrhagic anemia; K56.7 Ileus, unspecified; Z16.24 Resistance to multiple antibiotics; F32.A Depression, unspecified; Z53.31 Laparoscopic surgical procedure converted to open procedure; R79.89 Other specified abnormal findings of blood chemistry; E87.6 Hypokalemia; B96.20 Unspecified Escherichia coli [E. coli] as the cause of diseases classified elsewhere; B96.89 Other specified bacterial agents as the cause of diseases classified elsewhere; F41.9 Anxiety disorder, unspecified; K21.9 Gastro-esophageal reflux disease without esophagitis; E78.5 Hyperlipidemia, unspecified; K30 Functional dyspepsia; R74.01 Elevation of levels of liver transaminase levels; Z79.899 Other long term (current) drug therapy
CPT/HCPCS: 36415; 74019; 80048; 80053; 83690; 83735; 84100; 85025; 85027; 85610; 85730; 86850; 86900; 86901; 87070; 87075; 87077; 87186; 87205; 88307; 94760; 96361; 96365; 96375; 99284

== ENCOUNTER → 2022-08-14 | Outpatient (CLI) | payer BC ==
[2022-08-15 02:10] LABS: Albumin 3.9 g/dL (3.8-4.9); Albumin/Globulin Ratio 2.05 (1.60-3.17); Anion Gap 10.1 mmol/L (10.00-18.00); BUN/Creat Ratio 13.38 Ratio (12.00-20.00); Blood Urea Nitrogen 10.7 mg/dL (9.0-27.0); Calcium 9.5 mg/dL (8.7-10.3); Carbon Dioxide 28.9 mmol/L (20.0-27.5); Globulin 1.9 g/dL (1.6-3.3); Non-African American GFR(CKD) 107.9 (60.0-200.0); Potassium 4.4 mmol/L (3.5-5.5); Total Bilirubin 0.4 mg/dL (0.30-1.20); Total Protein 5.8 g/dL (6.2-8.2)
[2022-08-15 02:25] LABS: HCT 42.6 % (39.6-50.0); HGB 13.7 g/dL (13.0-17.0); MCH 30.1 pg (27.0-32.0); MCHC 32.2 g/dL (32.0-37.0); MCV 93.6 fL (80.0-97.0); Mean Platelet Volume 9.3 fL (9.5-12.2); NRBC Per 100 WBC 0 /100 WBCS (0.0-0.0); Platelet Count 440 X 10*3/uL (140-440); RBC 4.55 X 10*6/uL (4.40-5.60); RDW 14.4 % (11.5-14.5); WBC 7.83 X 10*3/uL (4.50-10.00)
== END | disposition home or self-care (01) ==
LOC: LABWHC1 14:29
PROVIDERS: ATTEND Surgery
DX: K35.80 Unspecified acute appendicitis (principal)
CPT/HCPCS: 36415; 80053; 85027